=== PATIENT | male | born 1950 | race Caucasian/White ===

== ENCOUNTER 2019-12-26 21:54 | Observation (INO) | payer MEDICARE, OTHER, SELFPAY ==
[2019-12-26 22:12] VITALS: BP 143/81; PULSE 124; RESP 18; TEMP 36.4; O2SAT 93; BMI 26.6
--- NOTE | 2019-12-26 22:16 | ECG_ITS ---
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 Measurements Intervals [place] Rate: 155 P: MT: -1 QRS: 248 QRSD: 138 T: 44 QT: 312 QTc: 501 Interpretive Statements ATRIAL FIBRILLATION WITH RAPID VENTRICULAR RESPONSE WITH ABERRANT CONDUCTION OR VENTRICULAR PREMATURE COMPLEXES MARKED RIGHT AXIS DEVIATION [QRS AXIS > 100] RIGHT BUNDLE BRANCH BLOCK [120+ ms QRS DURATION, UPRIGHT V1, 40+ ms S IN I/aVL/V4/V5/V6] No previous ECG available for comparison Electronically Signed On 12-28-2019 7:39:19 CDT by Coni Emerson M.D. [id number]
--- NOTE | 2019-12-26 22:22 | ECG_ITS ---
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 Measurements Intervals [place] Rate: 85 P: 82 MI: 219 QRS: 268 QRSD: 155 T: 61 QT: 382 QTc: 455 Interpretive Statements SINUS RHYTHM WITH FIRST DEGREE AV BLOCK RIGHT AXIS DEVIATION [QRS AXIS > 100] RIGHT BUNDLE BRANCH BLOCK [120+ ms QRS DURATION, UPRIGHT V1, 40+ ms S IN I/aVL/V4/V5/V6] Compared to ECG 12/26/2019 22:20:24 First degree AV block now present Atrial fibrillation no longer present Ventricular premature complex(es) no longer present Aberrant conduction of supraventricular beat(s) no longer present Electronically Signed On 12-28-2019 7:22:05 CDT by Coni Emerson M.D. [id number]
--- NOTE | 2019-12-26 22:22 | XR_ITS ---
WS: [id number] Exam: XR chest 1V portable [id number] Date/Time of Exam: 12/26/2019 10:33 PM Reason For Exam: palpitations Comparison 02/26/2012. The lungs are hyperinflated and clear. Normal cardiomediastinal structures and bony elements. XR/XR chest 1V portable [id number] IMPRESSION: 1. Marked pulmonary hyperinflation which may indicate obstructive lung disease. No acute process.
[2019-12-26 22:32] VITALS: BP 140/99; PULSE 159; RESP 13; O2SAT 94
[2019-12-26] MEDS: metoprolol tartrate 1 mg/1 mL SDV 5 mL 5 MG IV ×2 (22:46→23:12)
[2019-12-26 22:49] VITALS: BP 143/115; PULSE 100; RESP 19; O2SAT 94
[2019-12-26] MEDS: sodium chloride 0.9% 500 ML 999 ML IV (22:49)
[2019-12-26 22:57] LABS: Basophils # 0.1 10^3/uL (0.0-0.1); Eosinophils # 0.3 10^3/uL (0.0-0.8); Eosinophils % 3.4 %; Hematocrit 47.2 % (42.0-52.0); Hemoglobin 17.1 g/dL (11.7-16.6); Lymphocytes # 3.1 10^3/uL (0.8-4.8); Lymphocytes % 40.7 %; Mean Corpuscular HGB Conc 36.2 g/dL (30.0-36.0); Mean Corpuscular Hemoglobin 33.2 pg (28.0-34.0); Mean Corpuscular Volume 91.7 fL (80-94); Mean Platelet Volume 10.3 fL (7.4-10.4); Monocytes % 12.6 %; Neutrophils # 3.22 10^3/uL (1.8-7.7); Neutrophils % 42.2 %; Nucleated Red Blood Cells % 0 %; Platelet Count 230 10^3/cmm (130-400); Red Blood Count 5.15 10^6/uL (4.1-5.3); Red Cell Distribution Width 11.8 % (12.1-15.1); White Blood Count 7.6 10^3/uL (4.0-10.0)
[2019-12-26 23:16] VITALS: BP 149/101; PULSE 96; RESP 18; O2SAT 94
[2019-12-26 23:20] LABS: Troponin(5th) Baseline 16 ng/L (0-15)
[2019-12-26 23:28] LABS: Alanine Aminotransferase 34 U/L (0-41); Albumin Level 4.7 g/dL (3.5-5.2); Alkaline Phosphatase 78 IU/L (40-130); Aspartate Amino Transferase 24 U/L (0-40); Blood Urea Nitrogen 17 mg/dL (8-23); Carbon Dioxide 31 mmol/L (22-29); Chloride 100 mmol/L (98-107); Creatine Phosphokinase 111 U/L (39-308); Creatinine Clr Calc Pharmacy 75.7969; Glomerular Filtration Rate 83.9 mL/min (90-130); Glucose 133 mg/dL (65-115); NT Pro B Type Natriuretic Pept 42 pg/mL (0-125); Osmolality Calculated 297 mOsm/kg (285-295); Sodium 142 mmol/L (136-145); Thyroid Stimulating Hormone 3.61 uIU/mL (0.27-4.20); Total Bilirubin 0.4 mg/dL (0.15-1.2); Total Protein 7.7 g/dL (6.6-8.7)
[2019-12-26 23:44] VITALS: BP 127/93; PULSE 85; RESP 16; O2SAT 94
[2019-12-26 23:44] LABS: Anion Gap 14.2 (5-19); Potassium 3.2 mmol/L (3.5-5.1)
[2019-12-26 23:50] LABS: D Dimer 0.56 ug/mIFEU (0-0.59)
[2019-12-27] VITALS (13 sets, daily range): BP systolic 101–151; BP diastolic 72–99; PULSE 73–96; RESP 15–19; TEMP 36.6–36.7; O2SAT 92–94
[2019-12-27] MEDS: potassium chloride ER 10 mEq Tablet 40 MEQ PO (00:03)
[2019-12-27 00:41] LABS: Troponin 5 2HR 27.23 ng/L (0-15)
[2019-12-27 00:42] LABS: Troponin 5 2HR Delta 11.23 ABS# (0-10)
--- NOTE | 2019-12-27 01:07 | ED_ITS ---
HPI - Arrhythmia/Palpitations General: Chief Complaint: Arrhythmia/Palpitations Stated Complaint: hr 160/ fluttering in chest Time Seen by Provider: 12/26/19 22:22 History of Present Illness: HPI narrative: 69-year-old gentleman with a history of hypertension. No history of coronary disease. He presents with palpitations for the last several hours at home. He denies any overt chest pain. He notes that he is winded/short of breath mildly. He believes his heart rate is irregular also. He was advised by his family to come in. MD complaint: rapid heart beat and heart racing Onset (ago): hour(s) Duration: constant Severity: moderate Context: occurred during rest Associated symptoms: Reports short of breath; Deny anxiety, cough, nausea or vomiting Review of Systems Const: Denies: fever(s) or chills Eyes: Denies: change in vision or blurry vision ENMT: Denies: swelling of lips/tongue, change in hearing or sinus pain Card: Reports: palpitations, irregular heart rhythm and dyspnea on exertion; Denies: chest pain, edema or swelling of feet/ankles Resp: Reports: dyspnea; Denies: productive cough, non-productive cough or wheezing GI: Denies: nausea or vomiting : Denies: difficulty urinating or hematuria Musc: Denies: neck pain or joint warmth Skin/Breast: Denies: rash or erythema Neuro: Denies: headache(s), dizziness or vertigo Psych: Denies: anxiety Physical Exam Const: GENERAL APPEARANCE: well developed ORIENTATION/CONSCIOUSNESS: Yes oriented to person, Yes oriented to place and Yes oriented to time HENMT: COMMON NORMALS: normocephalic, external ears normal and Normal external nose present HEAD & SCALP: normocephalic FACE & SINUS: normal facial exam NOSE: Normal external nose present and No nasal discharge present EXTERNAL EAR: Yes external ears normal THROAT: posterior oropharynx normal; no peritonsillar mass Eye: COMMON NORMALS: Equal, round and reactive pupils present, EOMs intact bilaterally and conjunctivae normal EYELID: eyelids normal CONJUNCTIVA: Yes conjunctivae normal PUPIL: Yes Equal, round and reactive pupils present Neck/C-Spine: GENERAL: No tracheal deviation Chest: COMMONS NORMALS: normal inspection of the chest CHEST: No tenderness Resp: COMMON NORMALS: clear to auscultation bilaterally EFFORT & INSPECTION: No tachypneic, No respiratory distress, No retractions, No uses accessory muscles and No tracheal deviation AUSCULTATION: clear to auscultation bilaterally, no rhonchi, no wheezes and lung sounds not diminished Cardio: RATE: tachycardic RHYTHM: abnormal rhythm irregularly irregular HEART SOUNDS: no murmurs PERIPHERAL PULSES: radial pulses present GI: INSPECTION: No abdominal distension AUSCULTATION: No Hyperactive bowel sounds present and No Hypoactive bowel sounds present PALPATION: No Guarding due to palpation present (GI) and No Rigid due to palpation PERCUSSION: no dullness to percussion and no tympanic to percussion Neuro: SENSORIUM/ORIENTATION: Yes oriented to person, Yes oriented to place and Yes oriented to time Psych: COMMON NORMALS: mental status grossly normal Skin: COMMON NORMALS: no rashes or lesions noted GENERAL SKIN EXAM: no rashes or lesions noted Course Consultations: Consultation #1: brody Time: 01:35 Vital Signs: Vital signs: Vital Signs Temperature 97.6 F 12/26/19 22:12 Pulse Rate 79 12/27/19 01:32 Respiratory Rate 15 12/27/19 01:22 Blood Pressure 122/96 12/27/19 01:32 Pulse Oximetry 93 12/27/19 01:32 MDM - Arrhythmia/Palpitations MDM Narrative: Medical decision making narrative: 69-year-old hypertensive male presents with a heart rate of 160. It is irregular. EKG shows rapid atrial fibrillation with a large right bundle branch block. On arrival, there were frequent PVCs, essentially atrial fibrillation with a PVC every other beat conducted. He was given 5 mg of IV metoprolol with improvement in his heart rate. He was given another 5 mg of IV metoprolol with conversion back to a sinus rhythm, with first-degree AV block, and large right bundle branch block. He remains hypertensive with a blood pressure of 150/107. He will be given IV Vasotec plus nitroglycerin paste topically. He still does not have any chest pain. He notes he feels a bit better. His potassium is 3.2. Her first troponin was mildly elevated, but his delta at 2 hours is 27. He will be observed for new onset atrial fibrillation with troponin elevation. His D-dimer was negative. Lab Data: Labs: Lab Results 10/25/20 10/25/20 10/25/20 Range/Units 22:37 22:37 22:37 WBC 7.6 (4.0-10.0) 10^3/ uL RBC 5.15 (4.1-5.3) 10^6/u L Hgb 17.1 H (11.7-16.6) g/dL Hct 47.2 (42.0-52.0) % MCV 91.7 (80-94) fL MCH 33.2 (28.0-34.0) pg MCHC 36.2 H (30.0-36.0) g/dL RDW 11.8 L (12.1-15.1) % Plt Count 230 (130-400) 10^3/c mm MPV 10.3 (7.4-10.4) fL Neut % (Auto) 42.2 % Lymph % (Auto) 40.7 % [place] % (Auto) 12.6 % Eos % (Auto) 3.4 % Baso % (Auto) 1.0 % Neut # (Auto) 3.22 (1.8-7.7) 10^3/u L Lymph # (Auto) 3.1 (0.8-4.8) 10^3/u L [place] # (Auto) 1.0 H (0.2-0.9) 10^3/u L Eos # (Auto) 0.3 (0.0-0.8) 10^3/u L Baso # (Auto) 0.1 (0.0-0.1) 10^3/u L Nucleated RBC % (a uto) 0 % Nucleated RBCs # 0.0 /100WBC D-Dimer 0.56 (0-0.59) ug/mIFE U Sodium 142 (136-145) mmol/L Potassium 3.2 L (3.5-5.1) mmol/L Chloride 100 (98-107) mmol/L Carbon Dioxide 31 H (22-29) mmol/L Anion Gap 14.2 (5-19) BUN 17 (8-23) mg/dL Creatinine 0.9 (0.7-1.2) mg/dL GFR Calculation 83.9 L (90-130) mL/min Glucose 133 H (65-115) mg/dL Calculated Osmolal ity 297 H (285-295) mOsm/k g Calcium 10.0 (8.5-10.5) mg/dL Total Bilirubin 0.4 (0.15-1.2) mg/dL AST 24 (0-40) U/L ALT 34 (0-41) U/L Alkaline Phosphata se 78 (40-130) IU/L Creatine Kinase 111 (39-308) U/L Troponin T Baselin e (0-15) ng/L Troponin T 120 Min [place] (0-15) ng/L Delta Troponin T (0-10) ABS# NT-Pro-B Natriuret Pep 42 (0-125) pg/mL Total Protein 7.7 (6.6-8.7) g/dL Albumin 4.7 (3.5-5.2) g/dL Globulin 3.0 (1.3-4.6) g/dL TSH 3.61 (0.27-4.20) uIU/ mL 12/26/19 12/27/19 Range/Units 22:37 00:15 WBC (4.0-10.0) 10^3/ uL RBC (4.1-5.3) 10^6/u L Hgb (11.7-16.6) g/dL Hct (42.0-52.0) % MCV (80-94) fL MCH (28.0-34.0) pg MCHC (30.0-36.0) g/dL RDW (12.1-15.1) % Plt Count (130-400) 10^3/c mm MPV (7.4-10.4) fL Neut % (Auto) % Lymph % (Auto) % [place] % (Auto) % Eos % (Auto) % Baso % (Auto) % Neut # (Auto) (1.8-7.7) 10^3/u L Lymph # (Auto) (0.8-4.8) 10^3/u L [place] # (Auto) (0.2-0.9) 10^3/u L Eos # (Auto) (0.0-0.8) 10^3/u L Baso # (Auto) (0.0-0.1) 10^3/u L Nucleated RBC % (a uto) % Nucleated RBCs # /100WBC D-Dimer (0-0.59) ug/mIFE U Sodium (136-145) mmol/L Potassium (3.5-5.1) mmol/L Chloride (98-107) mmol/L Carbon Dioxide (22-29) mmol/L Anion Gap (5-19) BUN (8-23) mg/dL Creatinine (0.7-1.2) mg/dL GFR Calculation (90-130) mL/min Glucose (65-115) mg/dL Calculated Osmolal ity (285-295) mOsm/k g Calcium (8.5-10.5) mg/dL Total Bilirubin (0.15-1.2) mg/dL AST (0-40) U/L ALT (0-41) U/L Alkaline Phosphata se (40-130) IU/L Creatine Kinase (39-308) U/L Troponin T Baselin e 16 H (0-15) ng/L Troponin T 120 Min [place] 27.23 H (0-15) ng/L Delta Troponin T 11.23 H* (0-10) ABS# NT-Pro-B Natriuret Pep (0-125) pg/mL Total Protein (6.6-8.7) g/dL Albumin (3.5-5.2) g/dL Globulin (1.3-4.6) g/dL TSH (0.27-4.20) uIU/ mL Coding Level of Care Code ED Supervisor Contact Lens for Chg Fwd Exam Comprehensive
[2019-12-27] MEDS: metoprolol tartrate 50 mg Tablet PO (01:17)
[2019-12-27] MEDS: nitroglycerin 1 gm/inch oint Pkt 1.5 INCH TOPICAL (01:18)
[2019-12-27] MEDS: enalaprilat 1.25 mg/mL Inj IVP (01:20)
--- NOTE | 2019-12-27 01:27 | P.HP_ITS ---
Providers/Chief Complaint Primary Care Provider: Uche Villafana MD Chief Complaint: hr 160/ fluttering in chest History of Present Illness Wilbur Wood is a 69 year old male who carries history of hypertension, psoriasis, rheumatoid arthritis, currently grieving the loss of his who due to complication of breast cancer with bone metastasis a month ago came in with chief complaint of palpitations. Patient is stating that today he noticed that something was off, he started noticing palpitations he thought he is having panic attack considering his recent emotional stress, he checked his pulse ox his heart rate was 160, normal saturation, he waited a little bit took some deep breaths which decreases heart rate to 82, but eventually his heart rate went up again, he discussed these findings with his son-in-law who is a PA working with Dr. Tellez recommended him to go to the ER for further evaluation. Diagnostics in the ER revealed A. fib RVR he required 2 dose of metoprolol 5 mg IV which converted his rhythm to sinus rhythm, he did not complain of any chest pain, D-dimer negative, hypokalemia, at the time of my evaluation heart rate 82, sinus rhythm, no active chest pain, shortness of breath He was hypotensive at arrival 143/115, he required Vasotec and Nitropaste along metoprolol, at the time of my evaluation blood pressure 124/92 Review of Systems Const: Reports: body aches and fatigue; Denies: fever(s) or chills Eyes: Denies: change in vision ENMT: Denies: throat pain Card: Reports: palpitations, lightheadedness and pre-syncope; Denies: chest pain Resp: Denies: dyspnea GI: Denies: abdominal pain : Reports: nocturia; Denies: flank pain Musc: Denies: neck pain Skin/Breast: Reports: lesions, changes in skin color and nail changes Neuro: Denies: headache(s) Psych: Reports: anxiety and depression Endo: Denies: polyuria Henry/Lymph: Denies: easy bruising All/Imm: Denies: urticaria Medications/Allergies Allergies Allergy/AdvReac Type Severity Reaction Status Date / Time No Known Allergies Allergy Verified 12/26/19 22:44 PFSH Acute PFSH: Medical History BPH (benign prostatic hyperplasia) Hypertension Psoriasis Rheumatoid arthritis Surgical History No pertinent past surgical history Family History Father CAD (coronary artery disease) [place] age 82 Social History Smoking and tobacco status: former smoker Quit status (tobacco): has quit using tobacco Former quit date comment: 2012 Alcohol intake: never Substance/Drug Use: current Substance/Drug use frequency: Special oc cassions/opportunity only Lives independently: Yes Housing: House Marital status details: His a month ago Vitals/I&O/Wt Last Vital Signs Temp 97.6 F 12/26/19 22:12 Pulse 79 12/27/19 01:22 Resp 15 12/27/19 01:22 BP 144/92 12/27/19 01:22 Pulse Ox 94 12/27/19 01:22 12/26/19 12/26/19 12/27/19 14:59 22:59 06:59 Intake Total 500 / 500 Balance 500 / 500 Weight last 48 hrs Weight 74.843 kg Physical Exam Narrative: EXAM NARRATIVE: Very pleasant elderly male who is sitting comfortably Currently saturating well on room air Heart rate 82 systolic blood pressure 124 No active chest pain, shortness of breath Appears well-hydrated, well-built S1, S2 sinus rhythm No acute respiratory distress, mild rhonchi heard at the bases of the lungs bilateral Abdomen soft nontender bowel sound present No carotid bruit or murmur appreciated No lower extremity edema Skin psoriasis Digital joint abnormalities secondary to rheumatoid arthritis Chronic skin rash on his extremities Appropriate mood and affect EOMI, PERRLA Neurologically nonfocal exam Data : 12/26/19 22:37 12/26/19 22:37 A&P Assessment and plan (1) Hypertensive urgency: Status: Acute (2) Paroxysmal A-fib: Status: Acute (3) Hypokalemia: Status: Acute Additional A&P Information Paroxysmal atrial fibrillation Converted to sinus rhythm after 2 doses of metoprolol 5 mg IV Currently in sinus rhythm, I would hold off on initiating anticoagulant agent, he remained in A. fib for less than an hour TSH normal I believe pres[facility] factor was hypertensive urgency, D-dimer negative Observe overnight on telemetry floor Echo in the morning, his troponin leak is most likely secondary to tac hyarrhythmia no active chest pain shortness of breath or signs of heart failure Hypokalemia: He does drink beer occasionally, will check magnesium level, potassium repleted Hypertensive urgency He only takes hydrochlorothiazide at home 25 mg/day I would add lisinopril and amlodipine with it Full code Cardiac diet DVT prophylaxis Lovenox Attestations Medical Necessity Statement*: Anticipating discharge in less than 48 hours continued echo for troponin leak however no chest pain Time Spent in Patient Care: (>than 50% of time spent in counselling and/or direct pt care on unit) . 50mins Coding Level of Care Code Acute Him Director for Clementina Gloria Diagnoses Hypertensive urgency I16.0 Paroxysmal A-fib I48.0 Hypokalemia E87.6
[2019-12-27 01:56] LABS: Magnesium 2.1 mg/dL (1.7-2.3)
--- NOTE | 2019-12-27 03:17 | USCV_ITS ---
Wilbur Wood Age: 69 Gender: M : 1950 Exam Date: 12/27/2019 06:35 Ordering Phys: Jeannie Goncalves MD Technologist: Elma Plasencia Exam Location: [facility] [place] Indication: AFIB BP: 124 / 87 HR: 126 Rhythm: Sinus Technical Quality: Suboptimal MEASUREMENTS (Male / Female) Normal Values 2D ECHO LV Diastolic Diameter PLAX 3.3 cm 4.2 - 5.9 / 3.9 - 5.3 cm LV Systolic Diameter PLAX 2.7 cm LV Chamber Size 2.1 cm IVS Diastolic Thickness 1.4 cm 0.6 - 1.0 / 0.6 - 0.9 cm IVS Systolic Thickness 1.4 cm LVPW Diastolic Thickness 2.0 cm 0.6 - 1.0 / 0.6 - 0.9 cm LVPW Systolic Thickness 2.1 cm RV Chamber Size 3.3 cm LVOT Diameter 2.0 cm LV Ejection Fraction 2D Teich 40.4 % LV Ejection Fraction MOD 2C 60.5 % LV Ejection Fraction 2C AL 60.0 % LA Diameter 2.2 cm LA Width 2.7 cm LA Height 4.0 cm RA Width 3.3 cm RA Height 3.5 cm Aorta at Sinotubular Diameter 2.9 cm M-MODE LV Diastolic Diameter MM 3.7 cm 4.2 - 5.9 / 3.9 - 5.3 cm LV Systolic Diameter MM 2.3 cm LV Ejection Fraction MM Teich 68.1 % IVS Diastolic Thickness MM 0.7 cm 0.6 - 1.0 / 0.6 - 0.9 cm IVS Systolic Thickness MM 1.1 cm LVPW Diastolic Thickness MM 0.6 cm 0.6 - 1.0 / 0.6 - 0.9 cm LVPW Systolic Thickness MM 1.2 cm Aortic Annulus Diameter 3.8 cm LA Ao Ratio MM 0.7 DOPPLER AV Peak Velocity 123.0 cm/s LVOT Peak Velocity 94.0 cm/s AV Area Cont Eq vti 2.9 cm squared AV Area Cont Eq pk 2.4 cm squared MV Area PHT 2.8 cm squared Mitral E to A Ratio 1.0 MV E' Velocity 44.0 cm/s Mitral E to MV E' Ratio 10.2 Mitral E to LV E' Lateral Ratio 10.9 Mitral E to LV E' Septal Ratio 9.7 TR Peak Velocity 106.3 cm/s TR Peak Gradient 4.5 mmHg TV Peak E Velocity 40.0 cm/s Right Atrial Pressure 3.0 mmHg Pulmonary Artery Systolic Pressu 7.5 mmHg PV Peak Velocity 43.0 cm/s RV Acceleration Time 0.1 s RV Ejection Time 0.3 s RV AcT/ET 0.2 FINDINGS Left Ventricle Normal left ventricular cavity size. Normal left ventricular systolic function. No regional wall motion abnormalities. Left ventricular ejection fraction is estimated at 60 %. There appeared to be septal bounce which could be secondary interventricular conduction delay or postoperative state. Grade II/IV diastolic dysfunction, moderately elevated filling pressures. Right Ventricle The right ventricle is normal in size and function. Right Atrium The right atrium is normal in size. Left Atrium The left atrium is normal in size. Mitral Valve Structurally normal mitral valve without significant stenosis or prolapse. There is no mitral regurgitation. Aortic Valve Mild aortic valve calcification. No aortic valve stenosis. No aortic valve regurgitation. Tricuspid Valve Structurally normal tricuspid valve without significant stenosis or regurgitation. Pulmonary artery systolic pressure is normal. Pulmonic Valve Structurally normal pulmonic valve without significant stenosis. There is no pulmonic regurgitation. Pericardium Normal pericardium without effusion. Aorta Normal ascending aorta dimension. CONCLUSIONS 1-Normal left ventricular cavity size. Normal left ventricular systolic function. No regional wall motion abnormalities. Left ventricular ejection fraction is estimated at 60 %. There appeared to be septal bounce which could be secondary interventricular conduction delay or postoperative state. Grade II/IV diastolic dysfunction, moderately elevated filling pressures. 2-Mild aortic valve calcification. No aortic valve stenosis. No aortic valve regurgitation. 3-There is no pericardial effusion. 4-No significant valve abnormalities. 5-Pulmonary artery systolic pressure is within normal limits. 6-Right atrial pressure is around 5 mm of mercury. 7-There are no prior echocardiogram studies to compare. Jeannie Brown MD (Electronically Signed) Final Date: 27 December 2019 17:56 S
--- NOTE | 2019-12-27 03:46 | PC.NURSE ---
Dr. Goncalves notified that there is an order for 40 of Potassium now and 40 of potassium was given at midnight in ED. Ordered to non-admin potassium that is due now. Patient arrived to the floor from the ED after report was received via phone. Patient is alert and oriented and ambulatory. Patient is in SR heart rate 70s-80s. Patient has been oriented to his room and has call light within reach. Patient has no complaints of pain, heart palpitations, or shortness of breath at this time. Patient states my just November 01 from cancer. Patient began crying.
[2019-12-27] MEDS: enoxaparin 40 mg/0.4 mL Syringe SUBCUT (03:54)
[2019-12-27 06:20] LABS: Anion Gap 10.7 (5-19); Blood Urea Nitrogen 17 mg/dL (8-23); Calcium 8.9 mg/dL (8.5-10.5); Carbon Dioxide 31 mmol/L (22-29); Chloride 105 mmol/L (98-107); Glomerular Filtration Rate 96.1 mL/min (90-130); Glucose 115 mg/dL (65-115); Osmolality Calculated 298 mOsm/kg (285-295); Potassium 3.7 mmol/L (3.5-5.1); Sodium 143 mmol/L (136-145)
[2019-12-27 06:40] LABS: Troponin 5 6HR 30.11 ng/L (0-15)
[2019-12-27 06:46] LABS: Troponin 5 6HR Delta 14.11 ng/L (0-12)
[2019-12-27] MEDS: lisinopril 10 mg Tablet PO (08:51)
[2019-12-27] MEDS: amlodipine 5 mg Tablet PO (08:51)
[2019-12-27] MEDS: metoprolol tartrate 25 mg Tablet PO (08:51)
--- NOTE | 2019-12-27 09:56 | PC.CHAP ---
Pastoral Care Encounter/Spiritual Assessment Type of Contact [] Declined dado operator visit [] Patient/Family/Request visit [] Outpatient visit [] Follow-up visit [] Physician referral [] Code/Alert [x] Routine visit [] Staff referral [] Actively dying [] Patient sleeping [] Family support [] [] Out of room [] Palliative care [] [] Receiving care in room [] Pre-surgical visit [] Trauma [] Long length of stay [] ICU visit [] Other: Relational/Emotional Strength [] Patient feels connected with others/family/visitors/staff [] Distress [] Loneliness/isolation [] Abandonment Spirituality of Patient [] Person of Therese [] Attends Adventism of their [place] [] Believes in Prayer [] Reads Bible or Lutheran materials [] There are Spiritual issues to be addressed Rn Lactation Interventions [x] Prayer [x] Active listening [x] Non-anxious presence [x] Spiritual/emotional support [] Crisis/trauma care [] Spiritual counseling [] Bereavement support [] Provided bereavement packet [] Provided Bible/devotional materials [] Provided toy/stuffed animal, coloring book to patient or family member [] Provided Communion [] Anointing/[place] [] Salvation [x] Completed spiritual assessment [] Other: Impact on Illness or Injury [] Angry [] Fearful [] Anxious [] Often cries [] Exhaustion [] Unable to work [] Unable to attend jainism [] Unable to walk/stand [] Unable to read [] Unable to drive [] Unable to eat/drink [] Unable to sleep [] Unable to be with family [] Patient intubated [] Other: Summary chest paints have stopped.. anxious about little dog (Birdie) at home.. passed (49yr) November 01.... gentleman, has children Time spent with patient 10 min
--- NOTE | 2019-12-27 12:08 | P.DS_ITS ---
Discharge Providers Date of Admission: 12/27/19 01:50 Date of Discharge: December 27, 2019 Attending Provider at Admission: Jeannie Goncalves MD Attending Provider at Discharge: Uche Villafana MD Primary Care Provider: Uche Villafana MD Diagnoses at Discharge Discharge Diagnosis (1) Hypertensive urgency: Status: Acute (2) Paroxysmal A-fib: Status: Acute (3) Hypokalemia: Status: Acute Reason for Visit Reason for Visit: hr 160/ fluttering in chest Hospital Course Discharge Summary: Patient is a 69-year-old male with a history of COPD and hypertension. He came into the emergency room for chest pain. He was found to be in A. fib with RVR. He received 2 doses of metoprolol and this converted back to sinus rhythm. His blood pressure was markedly elevated as well. This came down with other medications also. He states that his had about a month ago. He has not been taking good care of himself. Not eating healthy. He has been very stressed out with this as well. Patient was doing much better at the time of discharge. Troponins were marginally elevated but felt to be from the A. fib. He will follow-up with me in the clinic in the next 2 to 3 days to. We will determine if stress test is needed at that time. Discharge Data Data Completed and Pending: Completed Studies During Hospitalization Category Date Time Status XR chest 1V pricilla ble [id number] Stat Exams 12/26/19 22:22 Completed Pending at discharge Category Date Time Status CV echo complete* [id number] Routine Ultrasound 12/27/19 03:17 Taken Labs from last 24 hours 12/27/19 12/27/19 12/27/19 05:58 05:58 00:15 WBC RBC Hgb Hct MCV MCH MCHC RDW Plt Count MPV Neut % (Auto) Lymph % (Auto) [place] % (Auto) Eos % (Auto) Baso % (Auto) Neut # (Auto) Lymph # (Auto) [place] # (Auto) Eos # (Auto) Baso # (Auto) Nucleated RBC % (a uto) Nucleated RBCs # D-Dimer Sodium 143 Potassium 3.7 Chloride 105 Carbon Dioxide 31 H Anion Gap 10.7 BUN 17 Creatinine 0.8 GFR Calculation 96.1 Glucose 115 Calculated Osmolal ity 298 H Calcium 8.9 Magnesium 2.1 Total Bilirubin AST ALT Alkaline Phosphata se Creatine Kinase Troponin T Baselin e Troponin T 120 Min [place] Delta Troponin T Troponin T Hi Sens 6Hr 30.11 H Troponin T Hi Sens 6Hr Delta 14.11 H* NT-Pro-B Natriuret Pep Total Protein Albumin Globulin TSH 12/27/19 12/26/19 12/26/19 00:15 22:37 22:37 WBC RBC Hgb Hct MCV MCH MCHC RDW Plt Count MPV Neut % (Auto) Lymph % (Auto) [place] % (Auto) Eos % (Auto) Baso % (Auto) Neut # (Auto) Lymph # (Auto) [place] # (Auto) Eos # (Auto) Baso # (Auto) Nucleated RBC % (a uto) Nucleated RBCs # D-Dimer Sodium 142 Potassium 3.2 L Chloride 100 Carbon Dioxide 31 H Anion Gap 14.2 BUN 17 Creatinine 0.9 GFR Calculation 83.9 L Glucose 133 H Calculated Osmolal ity 297 H Calcium 10.0 Magnesium Total Bilirubin 0.4 AST 24 ALT 34 Alkaline Phosphata se 78 Creatine Kinase 111 Troponin T Baselin e 16 H Troponin T 120 Min [place] 27.23 H Delta Troponin T 11.23 H* Troponin T Hi Sens 6Hr Troponin T Hi Sens 6Hr Delta NT-Pro-B Natriuret Pep 42 Total Protein 7.7 Albumin 4.7 Globulin 3.0 TSH 3.61 12/26/19 12/26/19 22:37 22:37 WBC 7.6 RBC 5.15 Hgb 17.1 H Hct 47.2 MCV 91.7 MCH 33.2 MCHC 36.2 H RDW 11.8 L Plt Count 230 MPV 10.3 Neut % (Auto) 42.2 Lymph % (Auto) 40.7 [place] % (Auto) 12.6 Eos % (Auto) 3.4 Baso % (Auto) 1.0 Neut # (Auto) 3.22 Lymph # (Auto) 3.1 [place] # (Auto) 1.0 H Eos # (Auto) 0.3 Baso # (Auto) 0.1 Nucleated RBC % (a uto) 0 Nucleated RBCs # 0.0 D-Dimer 0.56 Sodium Potassium Chloride Carbon Dioxide Anion Gap BUN Creatinine GFR Calculation Glucose Calculated Osmolal ity Calcium Magnesium Total Bilirubin AST ALT Alkaline Phosphata se Creatine Kinase Troponin T Baselin e Troponin T 120 Min [place] Delta Troponin T Troponin T Hi Sens 6Hr Troponin T Hi Sens 6Hr Delta NT-Pro-B Natriuret Pep Total Protein Albumin Globulin TSH Vitals: Last Vital Signs Temp 97.8 F 12/27/19 10:59 Pulse 73 12/27/19 10:59 Resp 18 12/27/19 10:59 BP 101/74 12/27/19 10:59 Pulse Ox 93 12/27/19 10:59 Discharge Plan Discharge Patient Disposition: Home Condition: Stable Prescriptions: New metoprolol tartrate 25 mg Tablet 25 mg PO BID Qty: 60 RF: 8 Continued hydrochlorothiazide 25 mg Tablet 25 mg PO DAILY RF: 0 fluocinonide 0.05 % Solution 1 applic TOPICAL BID PRN (Reason: Itching) RF: 0 ketoconazole 2 % Shampoo 1 applic TOPICAL Q14D PRN (Reason: Itching) RF: 0 betamethasone dipropionate 0.05 % Ointment 1 applic TOPICAL BID PRN (Reason: Itching) RF: 0 desonide 0.05 % Ointment 1 applic TOPICAL BID PRN (Reason: Itching) RF: 0 Advair Diskus 250-50 mcg/dose Blister With Device 1 inh INHALATION BID RF: 0 melatonin 10 mg Capsule 20 mg PO BEDTIME RF: 0 Discharge Orders: Discharge Order (Routine); Ordered 12/27/19 Ordered By: Uche Villafana Referrals: Uche Villafana MD [Primary Care Provider] - 1-3 days Discharge Diet: Usual diet Discharge Activity: Resume usual activity Activity Restrictions/Additional Instructions: -Continue your home medications the same. -Add new medication metoprolol 25 mg twice a day. -Reduce any caffeine or extra salt intake. -Follow-up with Dr. Villafana in 2 to 3 days -Call if increasing chest pain or shortness of breath. Discharge Attestations Time Spent in Discharge Care*: greater than 30 min Quality Metrics Clinical Quality Measures During this hospital stay, did patient experience: None Coding Level of Care Code Acute Cost Estimator for Chg Fwd Diagnoses Hypertensive urgency I16.0 Paroxysmal A-fib I48.0 Hypokalemia E87.6
--- NOTE | 2019-12-27 12:29 | PC.NURSE ---
Patient discharged home at this time self care, Patient provided with discharge instructions and all follow up appointment. Patient verbalized understanding of all instructions. IV discontinued with cath intact min bleeding noted bandage applied. Patient accompanied to POV by staff, patient alert oriented and in stable condition upon departure.
== END 2019-12-27 12:36 | disposition home or self-care (01) ==
LOC: ER 22:22 → CSU 12-27 02:59
PROVIDERS: Emergency Medicine; Admitting Provider Internal Medicine; PCP Family Medicine; Visit Provider Family Medicine
DX: I16.0 Hypertensive urgency (principal); I48.0 Paroxysmal atrial fibrillation; E87.6 Hypokalemia; M06.9 Rheumatoid arthritis, unspecified; N40.0 Benign prostatic hyperplasia without lower urinary tract symptoms; I10 Essential (primary) hypertension; Z82.49 Family history of ischemic heart disease and other diseases of the circulatory system; Z87.891 Personal history of nicotine dependence
CPT/HCPCS: 12345; 36415; 71045; 80048; 80053; 82550; 83735; 83880; 84443; 84484; 85025; 85378; 93005; 93306; 96360; 96361; 96372; 96374; 96375; 96376; 99283; 99285; G0378; J1650; J3490; J7040

== ENCOUNTER 2020-08-15 23:11 | Inpatient (IN) | payer MEDICARE, OTHER, SELFPAY ==
[2020-08-15 23:20] VITALS: BP 107/68; PULSE 73; RESP 18; TEMP 36.3; O2SAT 94; BMI 24.5
--- NOTE | 2020-08-15 23:55 | XRR_ITS ---
PROCEDURE INFORMATION: Exam: XR Abdomen Exam date and time: 08/15/2020 11:55 PM Age: 70 years old Clinical indication: Other: Rectal bleeding; Additional info: Abd pain. Rectal bleeding. TECHNIQUE: Imaging protocol: XR of the abdomen. Views: 2 Views. Upright and supine views. COMPARISON: No relevant prior studies available. FINDINGS: Gastrointestinal tract: Normal. No bowel dilation. Intraperitoneal space: Normal. No free air. Vasculature: One or more calcified pelvic phleboliths. Bones/joints: Moderate right primary glenohumeral osteoarthritis. XR/XR acute abdomen series [id number] IMPRESSION: No acute findings.
--- NOTE | 2020-08-15 23:55 | ECG_ITS ---
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 Measurements Intervals [place] Rate: 75 P: 82 OR: 214 QRS: 266 QRSD: 149 T: 58 QT: 393 QTc: 441 Interpretive Statements SINUS RHYTHM WITH FIRST DEGREE AV BLOCK MARKED RIGHT AXIS DEVIATION [QRS AXIS > 100] RIGHT BUNDLE BRANCH BLOCK [120+ ms QRS DURATION, UPRIGHT V1, 40+ ms S IN I/aVL/V4/V5/V6] POSSIBLE SEPTAL MYOCARDIAL INFARCTION [30 ms Q WAVE IN V1/V2], OF INDETERMINATE AGE Compared to ECG 12/27/2019 00:08:45 Myocardial infarct finding now present Electronically Signed On 08-16-2020 17:44:01 CDT by Lucille Gallegos M.D. [email or web address]
[2020-08-16] VITALS (14 sets, daily range): BP systolic 108–154; BP diastolic 68–83; PULSE 63–82; RESP 16–19; TEMP 36.3–36.9; O2SAT 92–97
[2020-08-16] LABS: Basophils # 0.1 10^3/uL (0.0-0.1); Basophils % 0.6 %; Eosinophils # 0.4 10^3/uL (0.0-0.8); Eosinophils % 3.8 %; Hematocrit 38.9 % (42.0-52.0); Lymphocytes # 3.1 10^3/uL (0.8-4.8); Lymphocytes % 33.1 %; Mean Corpuscular Hemoglobin 33.3 pg (28.0-34.0); Mean Corpuscular Volume 92.6 fL (80-94); Mean Platelet Volume 10.1 fL (7.4-10.4); Monocytes # 0.7 10^3/uL (0.2-0.9); Monocytes % 7.9 %; Neutrophils # 5.02 10^3/uL (1.8-7.7); Neutrophils % 54.4 %; Nucleated Red Blood Cells % 0 %; Platelet Count 209 10^3/cmm (130-400); Red Cell Distribution Width 11.9 % (12.1-15.1); White Blood Count 9.2 10^3/uL (4.0-10.0)
--- NOTE | 2020-08-16 00:05 | W.ED.GIBLEED ---
HPI - GI Bleed General: Chief complaint: GI Bleed Stated complaint: blood in stool Time Seen by Provider: 08/16/20 00:02 History of Present Illness: HPI Narrative: This patient is a 70-year-old male who presents to the emergency department with complaint of bright red blood per rectum. Patient states he had very large bloody stools x5 today. Patient states he felt like his abdomen was growling went to the bathroom and had significant amount of blood. With clots. Patient states she never had any issues like this before he states he only takes an aspirin a day. Patient states he had so much bleeding that he felt like he was in a pass out because he gets lightheaded. Patient states he is feeling much better now we will do medical evaluation treat as needed. Patient is present with his son who described the blood being in the floor also. complaint: melena and gross hematochezia Onset (ago): minute(s) Severity: moderate Relieving factors: none Exacerbating factors: none Associated symptoms: Denies abdominal pain, chills, fever(s), headache(s), nausea, rash or vomiting Review of Systems General: Reports: 10 or more systems reviewed and unremarkable except in HPI and below Const: Denies: fever(s), chills, body aches or fatigue Eyes: Denies: change in vision or blurry vision ENMT: Denies: throat pain, hoarseness or mouth pain Card: Denies: chest pain, palpitations, irregular heart rhythm, edema, swelling of feet/ankles or lightheadedness Resp: Denies: dyspnea, productive cough, non-productive cough, wheezing or pain on inspiration GI: Reports: hematochezia; Denies: abdominal pain, nausea or vomiting : Denies: flank pain, dysuria, urinary frequency, urinary urgency or urinary hesitancy Musc: Denies: neck pain, back pain, extremity pain, extremity swelling, joint pain, joint swelling, joint redness, joint warmth or limited range of motion Skin/Breast: Denies: rash, pruritus, erythema or skin tenderness Neuro: Denies: headache(s), numbness in extremities or weakness in extremities Psych: Denies: anxiety or depression [facility] ED PFSH: Medical History (Updated 08/16/20 @ 00:39 by Bob Ortiz MD) BPH (benign prostatic hyperplasia) Hypertension Paroxysmal A-fib Psoriasis Rheumatoid arthritis Surgical History No pertinent past surgical history Family History Father CAD (coronary artery disease) [place] age 82 Social History Smoking and tobacco status: former smoker Quit status (tobacco): has quit using tobacco Former quit date comment: 2012 Alcohol intake: never Lives independently: Yes Housing: House Marital status details: His a month ago Physical Exam Const: COMMON NORMALS: no acute distress, average body habitus, patient oriented x3, no limitations, healthy appearing, alert and well nourished HENMT: COMMON NORMALS: normocephalic, atraumatic, hearing grossly normal bilaterally, external ears normal, EAC's normal, TM's normal bilaterally, Normal external nose present, Normal nasal mucous membranes and turbinates present, moist oral mucous membranes, oropharynx normal, dentition normal and gingiva normal HEAD & SCALP: normocephalic and atraumatic NOSE: Normal external nose present and Normal nasal mucous membranes and turbinates present EXTERNAL EAR: Yes external ears normal EXTERNAL AUDITORY CANAL: EAC's normal TYMPANIC MEMBRANE: TM's normal bilaterally Neck/C-Spine: COMMON NORMALS: full ROM, no lymphadenopathy, supple, no meningeal signs, no JVD, Thyroid normal and No carotid bruits THYROID: Thyroid normal Chest: COMMONS NORMALS: normal inspection of the chest, normal palpation of entire chest wall, normal inspection of the breasts and normal palpation of the breasts Breast/axilla inspection: Yes normal inspection of the breasts BREAST/AXILLA PALPATION: Yes normal palpation of the breasts Resp: COMMON NORMALS: normal respiratory effort, No retractions, No use of accessory muscles, clear to auscultation bilaterally and percussion normal AUSCULTATION: clear to auscultation bilaterally PERCUSSION: percussion normal Cardio: COMMON NORMALS: no JVD, regular rate, regular rhythm, S1 normal heart sound present, S2 normal heart sound present, No gallops present (Cardio), No clicks present (Cardio), No murmurs present (Cardio), No rub (Cardio) and Peripheral pulses 2+ throughout RATE: regular rate RHYTHM: regular rhythm HEART SOUNDS: S1 normal heart sound present and S2 normal heart sound present PERIPHERAL PULSES: Peripheral pulses 2+ throughout GI: COMMON NORMALS: Normal to inspection, nondistended, normoactive bowel sounds present, Soft to palpation, non-tender, No hepatosplenomegaly present, no masses and no bruits PALPATION: Yes Soft to palpation and Yes No hepatosplenomegaly present RECTAL EXAM: Yes Visual inspection abnormal (Blood around the anus) and Yes heme positive stool : COMMON NORMALS: Yes no CVA tenderness BLADDER/KIDNEY EXAM: Yes no CVA tenderness Back/Pelvis: COMMON NORMALS: no CVA tenderness, thoracic and lumbar spine normal to inspection, no thoracic nor lumbar tenderness, thoraco-lumbar ROM normal and straight leg raise negative bilaterally Extremity: COMMON NORMALS: normal to inspection, full ROM, capillary refill normal, no joint enlargement, no clubbing, cyanosis or edema, no calf tenderness and no pedal edema Neuro: COMMON NORMALS: patient oriented x3 SENSORIUM/ORIENTATION: Yes alert MENINGEAL SIGNS: Yes no meningeal signs Course Reevaluation(s): Reevaluation #1: I discussed at length with patient and family about concerns and findings. Patient is agreeable to be admitted to the hospital. Time: 00:39 Consultations: Consultation #1: I did discuss at length with Dr. Oro he will admit the patient write additional orders. Patient will need colonoscopy. Time: 00:39 Vital Signs: Vital signs: Vital Signs Temperature 97.3 F L 08/15/20 23:20 Pulse Rate 77 08/16/20 00:37 Respiratory Rate 18 08/15/20 23:20 Blood Pressure 110/78 08/16/20 00:37 Pulse Oximetry 94 08/15/20 23:20 MDM - GI Bleed MDM Narrative: Medical decision making narrative: This patient is a 70-year-old male who presents to the emergency department with complaint of bright red blood per rectum. Patient states he had very large bloody stools x5 today. Patient states he felt like his abdomen was growling went to the bathroom and had significant amount of blood. With clots. Patient states she never had any issues like this before he states he only takes an aspirin a day. Patient states he had so much bleeding that he felt like he was in a pass out because he gets lightheaded. Patient states he is feeling much better now we will do medical evaluation treat as needed. Patient is present with his son who described the blood being in the floor also. Lab Data: Labs: Lab Results 08/15/20 08/15/20 08/16/20 Range/Units 23:30 23:30 00:23 WBC 9.2 (4.0-10.0) 10^3/ uL RBC 4.20 (4.1-5.3) 10^6/u L Hgb 14.0 (11.7-16.6) g/dL Hct 38.9 L (42.0-52.0) % MCV 92.6 (80-94) fL MCH 33.3 (28.0-34.0) pg MCHC 36.0 (30.0-36.0) g/dL RDW 11.9 L (12.1-15.1) % Plt Count 209 (130-400) 10^3/c mm MPV 10.1 (7.4-10.4) fL Neut % (Auto) 54.4 % Lymph % (Auto) 33.1 % [place] % (Auto) 7.9 % Eos % (Auto) 3.8 % Baso % (Auto) 0.6 % Neut # (Auto) 5.02 (1.8-7.7) 10^3/u L Lymph # (Auto) 3.1 (0.8-4.8) 10^3/u L [place] # (Auto) 0.7 (0.2-0.9) 10^3/u L Eos # (Auto) 0.4 (0.0-0.8) 10^3/u L Baso # (Auto) 0.1 (0.0-0.1) 10^3/u L Nucleated RBC % (a uto) 0 % Nucleated RBCs # 0.0 /100WBC PT 14.00 (12.1-14.9) SECO NDS INR 1.05 (0.8-1.2) APTT 23.2 L (23.9-36.7) SECO NDS Sodium 139 (136-145) mmol/L Potassium 3.7 (3.5-5.1) mmol/L Chloride 102 (98-107) mmol/L Carbon Dioxide 27 (22-29) mmol/L Anion Gap 13.7 (5-19) BUN 17 (8-23) mg/dL Creatinine 0.9 (0.7-1.2) mg/dL GFR Calculation 83.7 L (90-130) mL/min Glucose 133 H (65-115) mg/dL Calculated Osmolal ity 291 (285-295) mOsm/k g Calcium 9.2 (8.5-10.5) mg/dL Total Bilirubin 0.3 (0.15-1.2) mg/dL AST 19 (0-40) U/L ALT 16 (0-41) U/L Alkaline Phosphata se 68 (40-130) IU/L Total Protein 6.8 (6.6-8.7) g/dL Albumin 4.1 (3.5-5.2) g/dL Globulin 2.7 (1.3-4.6) g/dL Imaging Data^: KUB: Attestation: I personally reviewed and interpreted this imaging study as follows: Radiologist's impression: No acute findings EKG Data^: EKG 1: Attestation: I personally reviewed and interpreted this EKG as follows: EKG interpretation date: 08/16/20 EKG interpretation time: 00:22 Prior EKG tracings: not available for review Computer generated interpretation: Sinus rhythm with a first-degree AV block. Right axis deviation. Heart rate 75. Right bundle branch block. Nonspecific EKG changes. Discharge Plan Discharge Patient Disposition: Admitted As Inpatient Clinical Impression: Lower gastrointestinal hemorrhage Condition: Stable Coding Level of Care Code ED Automotive Alignment Specialist for Chg Fwd Exam Comprehensive
[2020-08-16 00:12] LABS: Alanine Aminotransferase 16 U/L (0-41); Albumin Level 4.1 g/dL (3.5-5.2); Alkaline Phosphatase 68 IU/L (40-130); Anion Gap 13.7 (5-19); Aspartate Amino Transferase 19 U/L (0-40); Blood Urea Nitrogen 17 mg/dL (8-23); Calcium 9.2 mg/dL (8.5-10.5); Carbon Dioxide 27 mmol/L (22-29); Chloride 102 mmol/L (98-107); Creatinine Clr Calc Pharmacy 72.1597; Globulin 2.7 g/dL (1.3-4.6); Glomerular Filtration Rate 83.7 mL/min (90-130); Glucose 133 mg/dL (65-115); Osmolality Calculated 291 mOsm/kg (285-295); Potassium 3.7 mmol/L (3.5-5.1); Sodium 139 mmol/L (136-145); Total Bilirubin 0.3 mg/dL (0.15-1.2); Total Protein 6.8 g/dL (6.6-8.7)
[2020-08-16] MEDS: sodium chloride 0.9% 1,000 ML 999 ML IV (00:28)
--- NOTE | 2020-08-16 00:33 | CTR_ITS ---
PROCEDURE INFORMATION: Exam: CT Abdomen And Pelvis With Contrast Exam date and time: 08/16/2020 12:33 AM Age: 70 years old Clinical indication: Other: Rectal bleed; Patient HX: Multiple episodes of bright red bloody stools. ; Additional info: Abd pain TECHNIQUE: Imaging protocol: Computed tomography of the abdomen and pelvis with contrast. Radiation optimization: All CT scans at this facility use at least one of these dose optimization techniques: automated exposure control; mA and/or kV adjustment per patient size (includes targeted exams where dose is matched to clinical indication); or iterative reconstruction. Contrast material: OMNI 300; Contrast volume: 95 ml; Contrast route: INTRAVENOUS (IV); COMPARISON: CR (ABDOMEN, ) 08/15/2020 11:55 PM RADIATION DOSE METRICS: Total DLP (mGy-cm): 1048.81 FINDINGS: Liver: Normal. No mass. Gallbladder and bile ducts: Normal. No calcified stones. No ductal dilation. Pancreas: Normal. No ductal dilation. Spleen: Calcified splenic granulomas. Adrenal glands: Normal. No mass. Kidneys and ureters: Normal. No hydronephrosis. Stomach and bowel: Mild colonic diverticulosis. Appendix: Normal appendix. Intraperitoneal space: Unremarkable. No free air. No significant fluid collection. Vasculature: Calcification of the abdominal aorta and/or iliac arteries consistent with atherosclerotic vessel disease. One or more calcified pelvic phleboliths. Lymph nodes: Unremarkable. No enlarged lymph nodes. Urinary bladder: Unremarkable as visualized. Reproductive: Unremarkable as visualized. Bones/joints: Unremarkable. No acute fracture. Soft tissues: Unremarkable. CT/CT abdomen pelvis w con* [id number] IMPRESSION: No acute findings. Radiation Dose CTDIVOL = (mGy): DLP = 1048.81 (mGy-cm)
[2020-08-16 00:43] LABS: INR 1.05 (0.8-1.2); Partial Thromboplastin Time 23.2 SECONDS (23.9-36.7)
[2020-08-16] MEDS: iohexol 300 mg/mL 100 mL Btl IV (00:52)
[2020-08-16 01:36] LABS: Add Urine Culture? Yes; Add Urine Microscopic? YES; Bacteria Urine TRACE /hpf; Bilirubin Urine Neg (Negative); Blood Urine 2+ (Negative); Glucose Urine UA Norm (Normal); Ketones Urine Negative (Negative); Leukocyte Esterase Urine Negative (Negative); Mucus Urine 1+ /hpf; Nitrate Urine Negative (Negative); Protein Urine Trace (Negative); RBC Urine 0-4 /hpf (0-2); Squamous Epithelial Cell Urine 0-4 /hpf (0-5); Urine Appearance Clear (CLEAR); Urine Color Yellow (Yellow); Urobilinogen Urine Norm (Negative); WBC Urine 25-40 /hpf (0-5); pH Urine 7 (5-7)
--- NOTE | 2020-08-16 03:42 | PM.HP ---
Providers/Chief Complaint Admitting Physician: Patricia Oro Primary Care Provider: Uche Villafana MD Chief Complaint: blood in stool History of Present Illness 70-year-old with a past medical history significant for remote history of tobacco abuse, chronic obstructive pulmonary disease, chronic stage II diastolic dysfunction, and hypertension who presented to the hospital with bright red blood per rectum. Patient stated this started last evening. Noted multiple episodes. After this patient started to feel somewhat lightheaded in dizzy. Denied chest discomfort. No shortness of breath. Denied abdominal pain. No prior history of GI bleed. Takes aspirin 81 mg daily. Denies any prior history of GI bleed. No prior colonoscopies. Upon arrival to emergency roomHis laboratory workup showed a WBC of 9.2, hemoglobin of 14.0, hematocrit of 38.9 and a platelet count of 209. INR of 1.05. Sodium 139, potassium 3.7, chloride 102, bicarb 27, BUN 17 and creatinine of 0.9. Glucose of 133. Urinalysis showed 2+ blood, 0 to 4 RBC, negative leukocyte esterase or nitrates. CT abdomen pelvis was performed which did not show any evidence of acute abnormality. Review of Systems General: Reports: 10 or more systems reviewed and unremarkable except in HPI and below Medications/Allergies Home Medications Medication Instructions Recorded Confirmed Last Taken Type Advair Diskus 1 inh INHALATION BID 12/27/19 12/27/19 1 Week Ago History ~12/20/19 betamethasone dipropionate 1 applic TOPICAL BID PRN 12/27/19 12/27/19 Unknown History desonide 1 applic TOPICAL BID PRN 12/27/19 12/27/19 Unknown History fluocinonide 1 applic TOPICAL BID PRN 12/27/19 12/27/19 Unknown History hydrochlorothiazide 25 mg PO DAILY 12/27/19 12/27/19 1 Day Ago History ~12/26/19 ketoconazole 1 applic TOPICAL Q14D PRN 12/27/19 12/27/19 Unknown History melatonin 20 mg PO BEDTIME 12/27/19 12/27/19 12/25/19 History metoprolol tartrate 25 mg PO BID #60 tab 12/27/19 Unknown Rx Allergies Allergy/AdvReac Type Severity Reaction Status Date / Time No Known Allergies Allergy Verified 12/27/19 03:35 PFSH Acute PFSH: Medical History (Updated 08/16/20 @ 03:43 by Patricia Oro MD) BPH (benign prostatic hyperplasia) Hypertension Paroxysmal A-fib Psoriasis Rheumatoid arthritis Surgical History No pertinent past surgical history Family History Father CAD (coronary artery disease) [place] age 82 Social History Smoking and tobacco status: former smoker Quit status (tobacco): has quit using tobacco Former quit date comment: 2012 Alcohol intake: never Lives independently: Yes Housing: House Marital status details: His a month ago Vitals/I&O/Wt Last Vital Signs Temp 98.2 F 08/16/20 02:11 Pulse 73 08/16/20 02:11 Resp 16 08/16/20 02:11 BP 127/74 08/16/20 02:11 Pulse Ox 95 08/16/20 02:11 08/15/20 08/15/20 08/16/20 14:59 22:59 06:59 Intake Total 1000 / 1000 Balance 1000 / 1000 Weight last 48 hrs Weight 68.946 kg Physical Exam Narrative: EXAM NARRATIVE: General -alert awake and oriented x3 HEENT -grossly unremarkable CVS -regular rate rhythm no obvious murmurs Chest -clear to auscultation bilaterally Abdomen-soft nontender non distended Extremities-no edema Data : 08/15/20 23:30 08/15/20 23:30 A&P Assessment and plan (1) BRBPR (bright red blood per rectum): Status: Acute Bright red blood per rectum Possible diverticular bleed H&H q.6 hours Transfuse if less than 7 Discontinue aspirin Surgery consult in ER Will keep NPO overnight Paroxysmal Atrial Fibrillation NSR currently No anticoagulation Metoprolol 25 mg PO BID Hypertension Metoprolol 25 mg PO BID HCTZ 25 mg PO daily Chronic Obstructive pulmonary disease Resume Advair 1inh BID Duoneb q6hr PRN Chronic G2 diastolic dysfunction Stable - not in exacerbation On IVF however - cautious Monitor daily weight Rheumatoid arthritis Stable - not on ch. maintenance therapy GI ppx Protnix 40 mg IV BID DVT ppx SCDs Only Attestations Medical Necessity Statement*: Anticipate less than 2 midnight stay in hospital for evaluation and treatment of GI bleed Time Spent in Patient Care: Greater than 35 minutes (>than 50% of time spent in counselling and/or direct pt care on unit). Coding Level of Care Code Acute Merchandise Manager for g Fwd Diagnoses BRBPR (bright red blood per rectum) K62.5
[2020-08-16] MEDS: pantoprazole 40 mg SDV IVP ×2 (04:05→17:31)
[2020-08-16] MEDS: sodium chloride 0.9% 1,000 ML 75 ML IV (04:16)
[2020-08-16 04:44] LABS: Hematocrit 34.9 % (42.0-52.0); Hemoglobin 12.3 g/dL (11.7-16.6)
--- NOTE | 2020-08-16 04:47 | PC.NURSE ---
SHIFT NOTE pt tired and went to sleep shortly after arriving on the floor, A&O and fully aware of current condition.
--- NOTE | 2020-08-16 06:40 | P.CONIM_ITS ---
Providers/Reason For Consult Consulting Physician/Specialty*: Elvis Fraga MD Reason for Consult*: Bleeding per rectum Requesting Physician: Dr. Oro Attending Physician: Patricia Oro Primary Care Provider: Uche Villafana MD History of Present Illness History of Present Illness Chief Complaint: I have blood in stool History of present illness: Wilbur Wood is a pleasant 70 year old male presents to the emergency department with history of bleeding per rectum just last evening, not associated with abdominal pain, patient reports that he had multiple bouts of blood in stool and he also reported that he had some d izziness. Patient gives history of COPD, chronic stage II diastolic dysfunction and also history of hypertension. Patient was admitted to the hospitalist service with a hemoglobin of 14 and repeated hemoglobin today was 12.3 CT scan of the abdomen and pelvis was done and showed; Liver: Normal. No mass. Gallbladder and bile ducts: Normal. No calcified stones. No ductal dilation. Pancreas: Normal. No ductal dilation. Spleen: Calcified splenic granulomas. Adrenal glands: Normal. No mass. Kidneys and ureters: Normal. No hydronephrosis. Stomach and bowel: Mild colonic diverticulosis. Appendix: Normal appendix. Intraperitoneal space: Unremarkable. No free air. No significant fluid collection. Vasculature: Calcification of the abdominal aorta and/or iliac arteries consistent with atherosclerotic vessel disease. One or more calcified pelvic phleboliths. Lymph nodes: Unremarkable. No enlarged lymph nodes. Urinary bladder: Unremarkable as visualized. Reproductive: Unremarkable as visualized. Bones/joints: Unremarkable. No acute fracture. Soft tissues: Unremarkable. General surgery was consulted for further evaluation, note patient never had a colonoscopy before and he denies history of colon cancer or nonintentional weight loss. Also patient reports no history of peptic ulcer disease that would explain his bleeding per rectum originating from the foregut Review of Systems General: Reports: 10 or more systems reviewed and unremarkable except in HPI and below Meds/Allergies Home Medications and Allergies Home Medications Medication Instructions Recorded Confirmed Last Taken Type betamethasone dipropionate 1 applic TOPICAL BID PRN 12/27/19 08/16/20 Unknown History desonide 1 applic TOPICAL BID PRN 12/27/19 08/16/20 Unknown History fluocinonide 1 applic TOPICAL BID PRN 12/27/19 08/16/20 Unknown History fluticasone propion-salmeterol 1 inh INHALATION PRN 12/27/19 08/16/20 1 Week Ago History [Advair Diskus] ~12/20/19 ketoconazole 1 applic TOPICAL Q14D PRN 12/27/19 08/16/20 08/15/20 History melatonin 20 mg PO BEDTIME 12/27/19 08/16/20 12/25/19 History Cayenne Pills 1 cap PO DAILY 08/16/20 08/16/20 Unknown History Pygeum Bark 1 tab PO DAILY 08/16/20 08/16/20 Unknown History Vitamin D3 1 cap PO DAILY 08/16/20 08/16/20 Unknown History apple cider vinegar 2 tab PO DAILY 08/16/20 08/16/20 Unknown History aspirin [Aspir-81] 81 mg PO BEDTIME 08/16/20 08/16/20 Unknown History ibuprofen-diphenhydramine cit 2 tab PO BEDTIME 08/16/20 08/16/20 Unknown History [Ibuprofen PM] metoprolol tartrate 12.5 mg PO BID 08/16/20 08/16/20 Unknown History multivitamin 1 tab PO DAILY 08/16/20 08/16/20 Unknown History secukinumab [Cosentyx Pen (2 Pens)] 300 mg SUBCUT Q30D 08/16/20 08/16/20 08/01/20 History tamsulosin 0.4 mg PO BEDTIME 08/16/20 08/16/20 Unknown History zinc 1 cap PO DAILY 08/16/20 08/16/20 Unknown History Allergies Allergy/AdvReac Type Severity Reaction Status Date / Time No Known Allergies Allergy Verified 08/16/20 10:55 Current Medications Current Medications Generic Name Dose Route Start Last Admin Trade Name Freq PRN Reason Stop Dose Admin Sodium Chloride 1,000 mls @ 75 mls/hr 08/16/20 03:30 08/16/20 04:16 Sodium Chloride 0.9% IV 75 mls/hr .[id number] PRISCILLA Administration Pantoprazole Sodium 40 mg 08/16/20 03:30 08/16/20 04:05 Pantoprazole 40 Mg Sdv IVP 40 mg Q12H PRISCILLA Administration PFSH Acute PFSH: Medical History (Updated 08/16/20 @ 10:45 by Tom Vogel MD) BPH (benign prostatic hyperplasia) Hypertension Paroxysmal A-fib Psoriasis Rheumatoid arthritis Surgical History No pertinent past surgical history Family History Father CAD (coronary artery disease) [place] age 82 Social History Smoking and tobacco status: former smoker Quit status (tobacco): has quit using tobacco Former quit date comment: 2012 Alcohol intake: never Lives independently: Yes Housing: House Marital status details: His a month ago Vitals/I&O/Wt Last Vital Signs Temp 97.6 F 08/16/20 04:00 Pulse 69 08/16/20 04:00 Resp 16 08/16/20 04:00 BP 108/69 08/16/20 04:00 Pulse Ox 93 08/16/20 04:00 08/15/20 08/15/20 08/16/20 14:59 22:59 06:59 Intake Total 1000 / 1000 Balance 1000 / 1000 Weight last 48 hrs Weight 152 lb Physical Exam Const: COMMON NORMALS: no acute distress and patient oriented x3 GENERAL APPEARANCE: cooperative ORIENTATION/CONSCIOUSNESS: Yes awake, Yes oriented to person, Yes oriented to place and Yes oriented to time HENMT: COMMON NORMALS: normocephalic HEAD & SCALP: normocephalic Eye: COMMON NORMALS: Equal, round and reactive pupils present and no scleral icterus PUPIL: Yes Equal, round and reactive pupils present Lymph: LYMPHATIC: no lymphadenopathy noted Chest: COMMONS NORMALS: normal inspection of the chest Resp: COMMON NORMALS: normal respiratory effort and clear to auscultation bilaterally AUSCULTATION: clear to auscultation bilaterally Cardio: COMMON NORMALS: S1 normal heart sound present and S2 normal heart sound present; negative for No murmurs present (Cardio) HEART SOUNDS: S1 normal heart sound present and S2 normal heart sound present GI: COMMON NORMALS: Soft to palpation; negative for No hepatosplenomegaly present INSPECTION: Yes normal to inspection PALPATION: Yes Soft to palpation, No Firmness to palpation present (GI), No Tenderness to palpation present (GI), No Guarding due to palpation present (GI), No Rigid due to palpation and No No hepatosplenomegaly present Neuro: COMMON NORMALS: patient oriented x3 SENSORIUM/ORIENTATION: Yes oriented to person, Yes oriented to place and Yes oriented to time Psych: COMMON NORMALS: mental status grossly normal Skin: COMMON NORMALS: no rashes or lesions noted GENERAL SKIN EXAM: no rashes or lesions noted A&P Assessment and plan (1) BRBPR (bright red blood per rectum): Plan of care; After thorough history and physical examination and reviewing the chart, plan to perform diagnostic colonoscopy tomorrow in the GI lab. I discussed with the patient in details the risks,benefits,alternatives and indications.The risk of aspiration, bleeding, soft tissue injury, perforation of the colon and other potential concomitant complications were explained to the patient in details,also the potential need for Laproscoy/Laparotomy to repair any related complications including but not limited to colectomy and or Closotomy.The patient understood this well. Rationale was carefully and clearly discussed with the patient. All questions have been answered and all concerns have been addressed to patient's satisfaction. Verbal and written Instructions were given to the patient for colonoscopy prep Patient would like to discuss with his family with regard how to proceed, I did explain for the patient if he decides to proceed with colonoscopy will need to start GoLYTELY today with the plan to perform colonoscopy tomorrow. 1300 Patient decided through the day to proceed with colonoscopy tomorrow and infor med consent per chart Status: Acute (2) Diverticulosis: Plan of care; Review the pathology with the patient Return to primary care provider Avoid constipation Avoid seeds nuts and popcorn High Fiber diet; As Fiber softens the stool and helps prevent constipation. It also can help decrease pressure in the colon and help prevent flare-ups of diverticulitis. High-fiber foods include: ? Beans and legumes ? Bran, whole wheat bread and whole grain cereals such as oatmeal ? Brown and wild rice ? Fruits such as apples, bananas and pears ? Vegetables such as broccoli, carrots, corn and squash ? Whole wheat pasta The target is to eat 25 to 30 grams of fiber daily. Drink at least 8 cups of fluid daily. Fluid will help soften your stool.Exercise also promotes bowel movement and helps prevent constipation. Weight management Assurance and education All questions have been answered Status: Chronic Consult Attestations Medical Necessity Statement: Ongoing hospitalization passing 2 midnights for management of bleeding per rectum Time Spent in Patient Care: (>than 50% of time spent in counselling and/or direct pt care on unit) . Coding Level of Care Code Acute Public Address System Mechanic for Chg Fwd Exam Comprehensive Diagnoses BRBPR (bright red blood per rectum) K62.5 Diverticulosis K57.90
[2020-08-16 09:54] LABS: Hematocrit 36.7 % (42.0-52.0); Hemoglobin 12.9 g/dL (11.7-16.6)
--- NOTE | 2020-08-16 10:43 | P.PN_ITS ---
Subjective Subjective: Interval history: Admitted last night. H&P and labs noted. Patient has not had any further active bleeding overnight. Denies any nausea, vomiting. Anxious to go home. We discussed in detail that given the 5 patient has symptomatic drop in hemoglobin of 2 points after 4 episodes of bright red blood per rectum further investigation with colonoscopy is warranted for which she will need colon prep. We also discussed with colon prep patient can have further bleeding for which he would require continuous monitoring and may be repeat hemoglobin in the evening that if it is important for him to do the colon prep at hospital. Patient has agreed with the plan for now. Vitals/I&O/Wt Last Vital Signs Temp 97.4 F L 08/16/20 10:30 Pulse 76 08/16/20 10:30 Resp 18 08/16/20 10:30 BP 140/82 08/16/20 10:30 Pulse Ox 96 08/16/20 10:30 08/15/20 08/16/20 08/16/20 22:59 06:59 14:59 Intake Total 1000 / 1000 Output Total 120 / 120 Balance 1000 / 1000 -120 / -120 Weight last 48 hrs Weight 68.946 kg Physical Exam Narrative: EXAM NARRATIVE: General -alert awake and oriented x3 HEENT -grossly unremarkable CVS -regular rate rhythm no obvious murmurs Chest -clear to auscultation bilaterally Abdomen-soft nontender non distended Extremities-no edema Data : 08/16/20 09:38 08/15/20 23:30 A&P Assessment and plan (1) BRBPR (bright red blood per rectum): Status: Acute (2) Lower gastrointestinal hemorrhage: Status: Acute (3) Hypertension: Status: Acute (4) Paroxysmal A-fib: Status: Acute Bright red blood per rectum: Most likely lower GI bleeding Surgical recommendations appreciated. Colonoscopy most likely tomorrow. Colon prep with GoLYTELY. Hemoglobin stable today morning to 12.9. Check CBC daily for now until this patient has more active bleeding. Check iron panel, vitamin B12, folate levels. Transfuse if hemoglobin drops below 7 or if patient has hemodynamic instability. Can start on clear liquid diet for now. Protonix 40 mg IV every 12 hourly. Paroxysmal Atrial Fibrillation NSR currently No anticoagulation Metoprolol 25 mg PO BID Hypertension: Goal blood pressure less than 140/90 mmHg. Continue home dose of metoprolol. For now hold off on hydrochlorothiazide to prevent dehydration. Chronic Obstructive pulmonary disease Resume Advair 1inh BID Duoneb q6hr PRN Chronic G2 diastolic dysfunction Stable - not in exacerbation Straightening proper charting. Gentle IV hydration while monitoring for fluid overload. Daily weights. Rheumatoid arthritis Stable - not on ch. maintenance therapy Full code. SCDs for DVT prophylaxis given acute bleeding. Clear liquid diet. Attestations Medical Necessity Statement*: Wilbur Wood is being changed to inpatient status as stay will now exceed 2 midnights. Ongoing hospital care is necessary for symptomatic acute lower GI bleeding requiring colonoscopy after colon prep Time Spent in Patient Care: Greater than 35 minutes (>than 50% of time spent in counselling and/or direct pt care on unit) . Coding Level of Care Code Acute Assisted Living Director for Chg Fwd Diagnoses BRBPR (bright red blood per rectum) K62.5 Lower gastrointestinal hemorrhage K92.2 Hypertension I10 Paroxysmal A-fib I48.0
--- NOTE | 2020-08-16 10:56 | PC.PHAR ---
pt states he takes care of his own medications-pt states he has a advair inhaler-pt states this is an old rx he has-ext med history doesnt show last time filled-pt states he pulled this medication out the other day and said it had sometime 2019-pt states hctz 25mg daily filled on 07/20/20 90d/s was dced-pt states he takes metoprolol tart 12.5mg bid rx filled on 07/24/20 30d/s for 25 mg po bid
--- NOTE | 2020-08-16 10:58 | PC.CHAP ---
Pastoral Care Encounter/Spiritual Assessment Type of Contact [] Declined hotel operation manager visit [] Patient/Family/Request visit [] Outpatient visit [] Follow-up visit [] Physician referral [] Code/Alert [x] Routine visit [] Staff referral [] Actively dying [] Patient sleeping [] Family support [] [] Out of room [] Palliative care [] [] Receiving care in room [] Pre-surgical visit [] Trauma [] Long length of stay [] ICU visit [] Other: Relational/Emotional Strength [x] Patient feels connected with others/family/visitors/staff [] Distress [] Loneliness/isolation [] Abandonment Spirituality of Patient [x] Person of Therese [x] Attends Sikh of their [place] [] Believes in Prayer [] Reads Bible or Muslim materials [] There are Spiritual issues to be addressed Photofinishing Laboratory Worker Interventions [x] Prayer [x] Active listening [] Non-anxious presence [] Spiritual/emotional support [] Crisis/trauma care [] Spiritual counseling [] Bereavement support [] Provided bereavement packet [] Provided Bible/devotional materials [] Provided toy/stuffed animal, coloring book to patient or family member [] Provided Communion [] Anointing/Samson [] Salvation [x] Completed spiritual assessment [] Other: Impact on Illness or Injury [] Angry [] Fearful [] Anxious [] Often cries [] Exhaustion [] Unable to work [] Unable to attend anglican [] Unable to walk/stand [] Unable to read [] Unable to drive [] Unable to eat/drink [] Unable to sleep [] Unable to be with family [] Patient intubated [] Other: Summary Time spent with patient
[2020-08-16 12:00] LABS: Thyroid Stimulating Hormone 1.06 uIU/mL (0.27-4.20)
[2020-08-16] MEDS: metoprolol tartrate 25 mg Tablet PO ×2 (12:32→21:07)
[2020-08-16] MEDS: peg /e-lyte soln 4,000 mL Btl 4000 ML PO (12:32)
[2020-08-16 14:34] LABS: Iron 83 ug/dL (59-158); Total Iron Binding Capacity 224 mcg/dl; Unsaturated Iron Binding 141 ug/dL (112-347)
--- NOTE | 2020-08-16 21:22 | PC.NURSE ---
declined full tab of 25mg metoprolol, insisted on taking only half tab (12.5 mg), stated he only takes 1/2 tab at home. currently refusing IV fkuids at this time due to consistently using bathroom, currently on bowel prep.
[2020-08-16] MEDS: sodium chloride 0.9% 1,000 ML 30 ML IV (23:59)
[2020-08-17] VITALS (9 sets, daily range): BP systolic 99–144; BP diastolic 53–78; PULSE 53–89; RESP 16–18; TEMP 36.4–36.9; O2SAT 92–96
[2020-08-17 05:42] LABS: Basophils % 0.7 %; Eosinophils # 0.3 10^3/uL (0.0-0.8); Eosinophils % 5.2 %; Hematocrit 32.1 % (42.0-52.0); Hemoglobin 11.2 g/dL (11.7-16.6); Lymphocytes # 1.6 10^3/uL (0.8-4.8); Mean Corpuscular HGB Conc 34.9 g/dL (30.0-36.0); Mean Corpuscular Hemoglobin 32.7 pg (28.0-34.0); Mean Corpuscular Volume 93.9 fL (80-94); Mean Platelet Volume 9.5 fL (7.4-10.4); Monocytes # 0.5 10^3/uL (0.2-0.9); Monocytes % 9.5 %; Neutrophils # 3.09 10^3/uL (1.8-7.7); Neutrophils % 55.6 %; Nucleated Red Blood Cells % 0 %; Platelet Count 156 10^3/cmm (130-400); Red Blood Count 3.42 10^6/uL (4.1-5.3); White Blood Count 5.6 10^3/uL (4.0-10.0)
[2020-08-17] MEDS: pantoprazole 40 mg SDV IVP (05:56)
[2020-08-17 06:02] LABS: Alanine Aminotransferase 14 U/L (0-41); Albumin Level 3.6 g/dL (3.5-5.2); Alkaline Phosphatase 51 IU/L (40-130); Anion Gap 11.9 (5-19); Aspartate Amino Transferase 18 U/L (0-40); Blood Urea Nitrogen 11 mg/dL (8-23); Carbon Dioxide 29 mmol/L (22-29); Chloride 107 mmol/L (98-107); Glomerular Filtration Rate 95.8 mL/min (90-130); Glucose 90 mg/dL (65-115); Osmolality Calculated 297 mOsm/kg (285-295); Phosphorus 2.5 mg/dL (2.5-4.5); Potassium 3.9 mmol/L (3.5-5.1); Sodium 144 mmol/L (136-145); Total Bilirubin 0.4 mg/dL (0.15-1.2); Total Protein 5.6 g/dL (6.6-8.7)
--- NOTE | 2020-08-17 06:28 | PM.PN ---
Subjective Subjective: Interval history: No acute events overnight and overall patient denies any bleeding per rectum.Patient undergone colonoscopy prep. Medications: Reviewed: Yes Vitals/I&O/Wt Last Vital Signs Temp 98.5 F 08/17/20 04:00 Pulse 64 08/17/20 04:00 Resp 18 08/17/20 04:00 BP 122/70 08/17/20 04:00 Pulse Ox 92 08/17/20 04:00 08/16/20 08/16/20 08/17/20 14:59 22:59 06:59 Intake Total 1260 / 1260 0 / 1260 Output Total 120 / 120 250 / 370 Balance -120 / -120 1260 / 1140 -250 / 890 Weight last 48 hrs Weight 152 lb Physical Exam Narrative: EXAM NARRATIVE: Patient is conscious alert oriented X3 BMI 24.5 Head and neck examination PERRLA no masses no cervical lymphadenopathy no jaundice Abdomen nontender nondistended soft no organomegaly guarding or rigidity/no signs of peritonitis Data : 08/17/20 05:34 08/17/20 05:34 Micro: Microbiology 08/16/20 16:02 Occult Blood (FIT) - Final Stool Routine Collection A&P Assessment and plan (1) BRBPR (bright red blood per rectum): Plan of care; After thorough history and physical examination and reviewing the chart, plan to perform diagnostic colonoscopyToday. I discussed with the patient in details the risks,benefits,alternatives and indications.The risk of aspiration, bleeding, soft tissue injury, perforation of the colon and other potential concomitant complications were explained to the patient in details,also the potential need for Laproscoy/Laparotomy to repair any related complications including but not limited to colectomy and or Closotomy.The patient understood this well and did agree to proceed. Rationale was carefully and clearly discussed with the patient.Appropriate informed consent have been reviewed and signed All questions have been answered and all concerns have been addressed to patient's satisfaction. Verbal and written Instructions were given to the patient for colonoscopy prep Status: Acute Attestations Medical Necessity Statement*: Patient hospitalization will require inpatient admission passing 2 midnights Time Spent in Patient Care: Greater than 35 minutes (>than 50% of time spent in counselling and/or direct pt care on unit). Coding Level of Care Code Acute Power Station Operator for Chg Fwd Diagnoses BRBPR (bright red blood per rectum) K62.5
[2020-08-17] MEDS: sodium chloride 0.9% 1,000 ML 30 ML IV (06:45)
--- NOTE | 2020-08-17 07:12 | ANES.PREANE2 ---
Pre-Anesthetic Assessment Pre-Anesthetic Assessment: Height/Weight: Height 1.68 m Weight 68.946 kg Temp Pulse Resp BP Pulse Ox 97.7 F 62 18 130/74 92 08/17/20 06:46 08/17/20 06:46 08/17/20 06:46 08/17/20 06:46 08/17/20 06:46 Preop Diagnosis: Colonoscopy Proposed Procedure: Operation Date: 08/17/20 07:30 Proposed Procedures p Colonoscopy(Not Applicable) - Elvis Fraga MD Was Beta Suki taken within 24 hours: Yes Was Clonidine taken within 24 hours: N/A Last intake: Intake Last Liquid Date 08/16/20 Last Liquid Time 23:30 Last Solid Date 08/15/20 Last Solid Time 19:00 Social: Social History: Tobacco (h/o smoking) and No alcohol Exam: Pre-Anes Outpt Exam: alert, oriented x 3 and regular rate & rhythm Airway: Submandibular: WNL Cervical ROM: WNL MP: 2 Dentition: Chipped and Loose Pulmonary: Pulmonary: COPD CV/HEM: CV/HEM: Afib and HTN Anesthetic Plan: ASA status: 3 Anesthesia: MAC Risk of > 500 ml blood loss (7ml/kg in children): No Meds/Allergies Current Medications: Current Medications Generic Name Dose Route Start Last Admin Trade Name Freq PRN Reason Stop Dose Admin Sodium Chloride 1,000 mls @ 30 ml s/hr 08/16/20 08:00 08/17/20 06:52 Sodium Chloride 0.9% IV 08/17/20 07:59 30 mls/hr .Q24H ONE Administration Metoprolol Tartrat e 25 mg 08/16/20 11:00 08/16/20 21:07 Metoprolol Tartr ate 25 Mg Tablet PO 25 mg BID@0900,2100 PRISCILLA Administration Pantoprazole Sodiu m 40 mg 08/16/20 03:30 08/17/20 05:56 Pantoprazole 40 Mg Sdv IVP 40 mg Q12H PRISCILLA Administration Fluticasone/Salmet john 1 puff 08/16/20 20:00 08/16/20 22:01 Fluticasone-Salm eterol 100-50 Disk us INHALATION 1 puff BID.RESPIRATORY S CH Administration PFSH Anesthesia PFSH: Medical History (Updated 08/16/20 @ 10:45 by Tom Vogel MD) BPH (benign prostatic hyperplasia) Hypertension Paroxysmal A-fib Psoriasis Rheumatoid arthritis Surgical History No pertinent past surgical history Family History Father CAD (coronary artery disease) [place] age 82 Social History Smoking and tobacco status: former smoker Quit status (tobacco): has quit using tobacco Former quit date comment: 2012 Alcohol intake: never Lives independently: Yes Housing: House Marital status details: His a month ago Data Anesthesia CBC & Chem 7: 08/17/20 05:34 08/17/20 05:34 Other Labs: Laboratory Results - last 48 hr 08/15/20 08/15/20 08/16/20 23:30 23:30 00:23 WBC 9.2 RBC 4.20 Hgb 14.0 Hct 38.9 L MCV 92.6 MCH 33.3 MCHC 36.0 RDW 11.9 L Plt Count 209 MPV 10.1 Neut % (Auto) 54.4 Lymph % (Auto) 33.1 [place] % (Auto) 7.9 Eos % (Auto) 3.8 Baso % (Auto) 0.6 Neut # (Auto) 5.02 Lymph # (Auto) 3.1 [place] # (Auto) 0.7 Eos # (Auto) 0.4 Baso # (Auto) 0.1 Nucleated RBC % (auto) 0 Nucleated RBCs # 0.0 PT INR APTT Sodium 139 Potassium 3.7 Chloride 102 Carbon Dioxide 27 Anion Gap 13.7 BUN 17 Creatinine 0.9 GFR Calculation 83.7 L Glucose 133 H Calculated Osmolality 291 Calcium 9.2 Phosphorus Iron TIBC % Saturation Unsat Iron Binding Total Bilirubin 0.3 AST 19 ALT 16 Alkaline Phosphatase 68 Total Protein 6.8 Albumin 4.1 Globulin 2.7 TSH Urine Color Urine Appearance Urine pH Ur Specific [place] Urine Protein Urine Glucose (UA) Urine Ketones Urine Blood Urine Nitrate Urine Bilirubin Urine Urobilinogen Ur Leukocyte Esterase Urine RBC Urine WBC Ur Squamous Epith Cells Amorphous Sediment Urine Bacteria Urine Mucus Blood Type A Positive Rho(D) Type Positive / 4+ Antibody Screen Negative 08/16/20 08/16/20 08/16/20 00:23 01:16 04:39 WBC RBC Hgb 12.3 Hct 34.9 L MCV MCH MCHC RDW Plt Count MPV Neut % (Auto) Lymph % (Auto) [place] % (Auto) Eos % (Auto) Baso % (Auto) Neut # (Auto) Lymph # (Auto) [place] # (Auto) Eos # (Auto) Baso # (Auto) Nucleated RBC % (auto) Nucleated RBCs # PT 14.00 INR 1.05 APTT 23.2 L Sodium Potassium Chloride Carbon Dioxide Anion Gap BUN Creatinine GFR Calculation Glucose Calculated Osmolality Calcium Phosphorus Iron TIBC % Saturation Unsat Iron Binding Total Bilirubin AST ALT Alkaline Phosphatase Total Protein Albumin Globulin TSH Urine Color Yellow Urine Appearance Clear Urine pH 7 Ur Specific [place] 1.010 Urine Protein Trace Urine Glucose (UA) Norm Urine Ketones Negative Urine Blood 2+ H Urine Nitrate Negative Urine Bilirubin Neg Urine Urobilinogen Norm Ur Leukocyte Esterase Negative Urine RBC 0-4 H Urine WBC 25-40 H Ur Squamous Epith Cells 0-4 H Amorphous Sediment Not Reportable Urine Bacteria Trace Urine Mucus 1+ Blood Type Rho(D) Type Antibody Screen 08/16/20 08/16/20 08/16/20 09:38 09:38 09:38 WBC RBC Hgb 12.9 Hct 36.7 L MCV MCH MCHC RDW Plt Count MPV Neut % (Auto) Lymph % (Auto) [place] % (Auto) Eos % (Auto) Baso % (Auto) Neut # (Auto) Lymph # (Auto) [place] # (Auto) Eos # (Auto) Baso # (Auto) Nucleated RBC % (auto) Nucleated RBCs # PT INR APTT Sodium Potassium Chloride Carbon Dioxide Anion Gap BUN Creatinine GFR Calculation Glucose Calculated Osmolality Calcium Phosphorus Iron 83 TIBC 224 % Saturation 37.0 Unsat Iron Binding 141 Total Bilirubin AST ALT Alkaline Phosphatase Total Protein Albumin Globulin TSH 1.06 Urine Color Urine Appearance Urine pH Ur Specific [place] Urine Protein Urine Glucose (UA) Urine Ketones Urine Blood Urine Nitrate Urine Bilirubin Urine Urobilinogen Ur Leukocyte Esterase Urine RBC Urine WBC Ur Squamous Epith Cells Amorphous Sediment Urine Bacteria Urine Mucus Blood Type Rho(D) Type Antibody Screen 08/17/20 08/17/20 05:34 05:34 WBC 5.6 RBC 3.42 L Hgb 11.2 L Hct 32.1 L MCV 93.9 MCH 32.7 MCHC 34.9 RDW 12.0 L Plt Count 156 MPV 9.5 Neut % (Auto) 55.6 Lymph % (Auto) 29.0 [place] % (Auto) 9.5 Eos % (Auto) 5.2 Baso % (Auto) 0.7 Neut # (Auto) 3.09 Lymph # (Auto) 1.6 [place] # (Auto) 0.5 Eos # (Auto) 0.3 Baso # (Auto) 0.0 Nucleated RBC % (auto) 0 Nucleated RBCs # 0.0 PT INR APTT Sodium 144 Potassium 3.9 Chloride 107 Carbon Dioxide 29 Anion Gap 11.9 BUN 11 Creatinine 0.8 GFR Calculation 95.8 Glucose 90 Calculated Osmolality 297 H Calcium 8.0 L Phosphorus 2.5 Iron TIBC % Saturation Unsat Iron Binding Total Bilirubin 0.4 AST 18 ALT 14 Alkaline Phosphatase 51 Total Protein 5.6 L Albumin 3.6 Globulin 2.0 TSH Urine Color Urine Appearance Urine pH Ur Specific [place] Urine Protein Urine Glucose (UA) Urine Ketones Urine Blood Urine Nitrate Urine Bilirubin Urine Urobilinogen Ur Leukocyte Esterase Urine RBC Urine WBC Ur Squamous Epith Cells Amorphous Sediment Urine Bacteria Urine Mucus Blood Type Rho(D) Type Antibody Screen Micro: Microbiology 08/16/20 16:02 Occult Blood (FIT) - Final Stool Routine Collection Cardiac Studies: No Data to Display
--- NOTE | 2020-08-17 10:03 | P.DS_ITS ---
Discharge Providers Date of Admission: 08/16/20 18:21 Date of Discharge: August 17, 2020 Attending Provider at Admission: Patricia Oro Attending Provider at Discharge: Tom Vogel MD Primary Care Provider: Uche Villafana MD Diagnoses at Discharge Discharge Diagnosis (1) BRBPR (bright red blood per rectum): Status: Acute Reason for Visit Reason for Visit: blood in stool Hospital Course Hospital Course 70-year-old with a past medical history significant for remote history of tobacco abuse, chronic obstructive pulmonary disease, chronic stage II diastolic dysfunction, and hypertension who presented to the hospital with bright red blood per rectum. Patient stated this started last evening. Noted multiple episodes. After this patient started to feel somewhat lightheaded in dizzy. Denied chest discomfort. No shortness of breath. Denied abdominal pain. No prior history of GI bleed. Takes aspirin 81 mg daily. Denies any prior history of GI bleed. No prior colonoscopies. Upon arrival to emergency roomHis laboratory workup showed a WBC of 9.2, hemoglobin of 14.0, hematocrit of 38.9 and a platelet count of 209. INR of 1.05. Sodium 139, potassium 3.7, chloride 102, bicarb 27, BUN 17 and creatinine of 0.9. Glucose of 133. Urinalysis showed 2+ blood, 0 to 4 RBC, negative leukocyte esterase or nitrates. Patient was admitted to the hospital for symptomatic blood loss anemia. He did not have any further bleeding or melena. Surgery was consulted and he underwent bowel prep after which he underwent colonoscopy on August 17, 2020. His hemoglobin slowly trended down to 11.2 on the day of discharge which is most likely the equilibrium after acute blood loss 2 nights ago. Colonoscopy showed a sessile 2 mm polyp which was excised along with multiple diverticuli without any active site of bleeding. He is been discharged hemodynamically stable condition with advised to take [id number] stool softener as needed, oral iron supplementation and to follow-up with his primary care provider within next 2 weeks for a repeat CBC. He is also advised to follow-up with Dr. Fraga as an outpatient in next 1 week. . Physical Exam Narrative: EXAM NARRATIVE: General -alert awake and oriented x3 HEENT -grossly unremarkable CVS -regular rate rhythm no obvious murmurs Chest -clear to auscultation bilaterally Abdomen-soft nontender non distended Extremities-no edema Discharge Data Data Completed and Pending: Completed Studies During Hospitalization Category Date Time Status CT abdomen pelvis w con* [id number] Stat Cat Scan 08/16/20 00:33 Completed XR acute abdomen series [id number] Stat Exams 08/15/20 23:55 Completed Pending at discharge Category Date Time Status Urine Culture Sta t Lab 08/16/20 01:16 Results Pathology: Surgic al [PTH] Routine Pth 08/17/20 07:44 Received Labs from last 24 hours 08/17/20 08/17/20 08/16/20 05:34 05:34 09:38 WBC 5.6 RBC 3.42 L Hgb 11.2 L Hct 32.1 L MCV 93.9 MCH 32.7 MCHC 34.9 RDW 12.0 L Plt Count 156 MPV 9.5 Neut % (Auto) 55.6 Lymph % (Auto) 29.0 [place] % (Auto) 9.5 Eos % (Auto) 5.2 Baso % (Auto) 0.7 Neut # (Auto) 3.09 Lymph # (Auto) 1.6 [place] # (Auto) 0.5 Eos # (Auto) 0.3 Baso # (Auto) 0.0 Nucleated RBC % (a uto) 0 Nucleated RBCs # 0.0 Sodium 144 Potassium 3.9 Chloride 107 Carbon Dioxide 29 Anion Gap 11.9 BUN 11 Creatinine 0.8 GFR Calculation 95.8 Glucose 90 Calculated Osmolal ity 297 H Calcium 8.0 L Phosphorus 2.5 Iron TIBC % Saturation Unsat Iron Binding Total Bilirubin 0.4 AST 18 ALT 14 Alkaline Phosphata se 51 Total Protein 5.6 L Albumin 3.6 Globulin 2.0 TSH 1.06 08/16/20 09:38 WBC RBC Hgb Hct MCV MCH MCHC RDW Plt Count MPV Neut % (Auto) Lymph % (Auto) Wood[place] % (Auto) Eos % (Auto) Baso % (Auto) Neut # (Auto) Lymph # (Auto) [place] # (Auto) Eos # (Auto) Baso # (Auto) Nucleated RBC % (a uto) Nucleated RBCs # Sodium Potassium Chloride Carbon Dioxide Anion Gap BUN Creatinine GFR Calculation Glucose Calculated Osmolal ity Calcium Phosphorus Iron 83 TIBC 224 % Saturation 37.0 Unsat Iron Binding 141 Total Bilirubin AST ALT Alkaline Phosphata se Total Protein Albumin Globulin TSH Vitals: Last Vital Signs Temp 98.1 F 08/17/20 08:42 Pulse 66 08/17/20 08:42 Resp 16 08/17/20 08:42 BP 114/68 08/17/20 08:42 Pulse Ox 95 08/17/20 08:42 Discharge Plan Discharge Patient Disposition: Home Condition: Stable Prescriptions: New Dexilant 30 mg capsule,biphase delayed releas 30 mg PO DAILY Qty: 20 RF: 0 ferrous gluconate 324 mg (38 mg iron) tablet 324 mg PO BID Qty: 60 RF: 0 Continued multivitamin Tablet 1 tab PO DAILY RF: 0 tamsulosin 0.4 mg capsule 0.4 mg PO BEDTIME RF: 0 metoprolol tartrate 25 mg tablet 12.5 mg PO BID RF: 0 Ibuprofen PM 200-38 mg Tablet 2 tab PO BEDTIME RF: 0 Cosentyx Pen (2 Pens) 150 mg/mL Pen Injector 300 mg SUBCUT Q30D RF: 0 Cayenne Pills 1 cap PO DAILY RF: 0 Pygeum Bark 1 tab PO DAILY RF: 0 Vitamin D3 1 cap PO DAILY RF: 0 apple cider vinegar 2 tab PO DAILY RF: 0 zinc 1 cap PO DAILY RF: 0 fluocinonide 0.05 % Solution 1 applic TOPICAL BID PRN (Reason: Itching) RF: 0 ketoconazole 2 % Shampoo 1 applic TOPICAL Q14D PRN (Reason: Itching) RF: 0 betamethasone dipropionate 0.05 % Ointment 1 applic TOPICAL BID PRN (Reason: Itching) RF: 0 desonide 0.05 % Ointment 1 applic TOPICAL BID PRN (Reason: Itching) RF: 0 fluticasone propion-salmeterol [Advair Diskus] 250-50 mcg/dose Blister With Device 1 inh INHALATION PRN RF: 0 melatonin 10 mg Capsule 20 mg PO BEDTIME RF: 0 Held Aspir-81 81 mg Tablet,Delayed Release (Dr/Ec) 81 mg PO BEDTIME RF: 0 Hold Instructions: Resume on 08/24/20. Discharge Orders: Discharge Order (Routine); Ordered 08/17/20 Ordered By: Tom Vogel Referrals: Elvis Fraga MD [Physician] - 2 weeks Uche Villafana MD [Primary Care Provider] - 2 weeks (Repeat CBC.) Discharge Diet: As Directed Discharge Activity: Resume usual activity Patient Instructions: GI Discharge Instructions, Opioid Safety Activity Restrictions/Additional Instructions: Please follow-up with your primary care provider within next 2 weeks Avoid seeds, nuts and popcorn's. Please use high-fiber diet. Please avoid constipation. High-fiber food includes beans, legumes, bran, whole wheat bread, brown and white rice, vegetables such as broccoli, carrots and squash and fruits like apples and bananas. Target estimate 25 to 30 g of fibers daily and drink 8 cups of fluids daily. Please use ueke-gzn-brzqqdy stool softeners as needed. Discharge Attestations Time Spent in Discharge Care*: greater than 30 min Specific Discharge Activities: educating patient, educating and/or supporting family/caregiver, discussing with pcp/other providers, discussing with case management manager/social workers/dc planners, documenting/other paperwork and evaluating patient/reviewing data Status at Discharge: Cognitive status at discharge: cognitively intact , Behavioral status at discharge: cooperative , Functional status at discharge: independent ambulation Overall status at discharge: patient is back to baseline Quality Metrics Clinical Quality Measures During this hospital stay, did patient experience: None Coding Level of Care Code Acute Chg FW DC note Diagnoses BRBPR (bright red blood per rectum) K62.5
[2020-08-17] MEDS: metoprolol tartrate 25 mg Tablet 12.5 MG PO (11:05)
--- NOTE | 2020-08-17 11:18 | PC.CHAP ---
Pastoral Care Encounter/Spiritual Assessment Type of Contact [] Declined auditing clerk visit [] Patient/Family/Request visit [] Outpatient visit [] Follow-up visit [] Physician referral [] Code/Alert [x] Routine visit [] Staff referral [] Actively dying [] Patient sleeping [] Family support [] [] Out of room [] Palliative care [] [x] Receiving care in room [] Pre-surgical visit [] Trauma [] Long length of stay [] ICU visit [] Other: Relational/Emotional Strength [] Patient feels connected with others/family/visitors/staff [] Distress [] Loneliness/isolation [] Abandonment Spirituality of Patient [x] Person of Therese [] Attends Mandaeism of their Therese [x] Believes in Prayer [] Reads Bible or Orthodox materials [] There are Spiritual issues to be addressed [employer] Director Interventions [x] Prayer [x] Active listening [x] Non-anxious presence [x] Spiritual/emotional support [] Crisis/trauma care [x] Spiritual counseling [] Bereavement support [] Provided bereavement packet [] Provided Bible/devotional materials [] Provided toy/stuffed animal, coloring book to patient or family member [] Provided Communion [] Anointing/[place] [] Salvation [x] Completed spiritual assessment [] Other: Impact on Illness or Injury [] Angry [] Fearful [x] Anxious [] Often cries [] Exhaustion [] Unable to work [] Unable to attend quaker [] Unable to walk/stand [] Unable to read [] Unable to drive [] Unable to eat/drink [] Unable to sleep [] Unable to be with family [] Patient intubated [] Other: Summary had a stent in leg feels good and ius going home soon has agood attitude + 1 Time spent with patient 10 mins
--- NOTE | 2020-08-17 13:37 | ANE.PACU2 ---
Inpatient post-anesthesia follow up: Airway intact: Yes Vital signs: Temperature 98.1 F Pulse Rate [Monito r] 73 Pulse Rate [Orthos tatic 82 Standing Right Bra chial] Pulse Rate [Orthos tatic 73 Sitting Right Brac hial] Pulse Rate [Orthos tatic Lying 77 Right Brachial] Pulse Rate 66 Respiratory Rate 16 Blood Pressure [Or thostatic 127/79 Standing Right Arm ] Blood Pressure [Or thostatic 140/78 Sitting Right Arm] Blood Pressure [Or thostatic 110/78 Lying Right Arm] Blood Pressure [Le ft Arm] 107/68 Blood Pressure 114/68 Pulse Oximetry 95 Oxygen Delivery Me thod Room Air Oxygen Flow Rate 2 Fraction of Inspir ed Oxygen Hydration adequate: Yes Nausea and vomiting: No Pain level: 1 Mental status: Baseline
== END 2020-08-17 12:11 | disposition home or self-care (01) | DRG 378 ==
LOC: ER 08-16 00:39 → MEDSURG 08-16 01:32
PROVIDERS: Surgery; Admitting Provider Hospitalist; Emergency Provider Emergency Medicine; PCP Family Medicine; Visit Provider Student in an Organized Health Care Education/Training Program
PROC: 0DJD8ZZ Inspection of Lower Intestinal Tract, Via Natural or Artificial Opening Endoscopic (ICD-10-PCS; CPT 45378; principal; 2020-08-17 07:30)
DX: K62.5 Hemorrhage of anus and rectum (principal); I50.32 Chronic diastolic (congestive) heart failure; D50.0 Iron deficiency anemia secondary to blood loss (chronic); J44.9 Chronic obstructive pulmonary disease, unspecified; Z87.891 Personal history of nicotine dependence; I11.0 Hypertensive heart disease with heart failure; N40.0 Benign prostatic hyperplasia without lower urinary tract symptoms; I48.0 Paroxysmal atrial fibrillation; L40.9 Psoriasis, unspecified; M06.9 Rheumatoid arthritis, unspecified; K63.5 Polyp of colon; K57.30 Diverticulosis of large intestine without perforation or abscess without bleeding
CPT/HCPCS: 36415; 45380; 74022; 74177; 80053; 81001; 82274; 83540; 83550; 84100; 84443; 85014; 85018; 85025; 85610; 85730; 86850; 86900; 87086; 88305; 93005; 94640; 96360; 99285; C9113; G0378; J2704; J7030; Q9967

== ENCOUNTER 2021-01-16 12:26 | Outpatient (CLI) | payer MEDICARE, SELFPAY ==
[2021-01-16 12:35] VITALS: BP 134/86; PULSE 72; RESP 18; TEMP 36.9; O2SAT 95
[2021-01-16 13:02] VITALS: BMI 25.8
[2021-01-16 13:25] VITALS: BP 131/80; PULSE 66; RESP 18; TEMP 36.6; O2SAT 96
[2021-01-16 14:26] VITALS: BP 130/82; PULSE 67; RESP 18; TEMP 36.8; O2SAT 95
== END 2021-01-16 12:27 | disposition home or self-care (01) ==
PROVIDERS: PCP Family Medicine; Visit Provider Family Medicine
DX: U07.1 COVID-19 (principal)
CPT/HCPCS: 96365

== ENCOUNTER 2021-03-06 13:12 | Outpatient (CLI) | payer MEDICARE, SELFPAY ==
--- NOTE | 2021-03-06 13:19 | XRR_ITS ---
PROCEDURE INFORMATION: Exam: XR Chest Exam date and time: 03/06/2021 1:19 PM Age: 70 years old Clinical indication: Condition or disease; Lung condition and disease; With exacerbation; Patient HX: Copd, coughing, SOB; Additional info: Acute exacerbation copd TECHNIQUE: Imaging protocol: XR of the chest. Views: 2 views. COMPARISON: CR XR chest 1V portable [id number] 12/26/2019 10:32 PM FINDINGS: Lungs: Unremarkable. No consolidation. Pleural spaces: Unremarkable. No pleural effusion. No pneumothorax. Heart/Mediastinum: Unremarkable. No cardiomegaly. Bones/joints: Unremarkable. XR/XR chest 2V* [id number] IMPRESSION: No acute findings.
== END 2021-03-06 13:13 | disposition home or self-care (01) ==
LOC: RAD 13:15
PROVIDERS: PCP Family Medicine; Visit Provider Family Medicine
DX: J44.1 Chronic obstructive pulmonary disease with (acute) exacerbation (principal)
CPT/HCPCS: 71046

== ENCOUNTER → 2021-11-29 08:04 | Outpatient (BNVA) | payer MEDICARE, SELFPAY | PROVIDERS: PCP Family Medicine; Visit Provider Family Medicine | DX: Z00.00 Encounter for general adult medical examination without abnormal findings (principal); R31.9 Hematuria, unspecified; E78.5 Hyperlipidemia, unspecified; I10 Essential (primary) hypertension; N40.0 Benign prostatic hyperplasia without lower urinary tract symptoms | CPT/HCPCS: 80053; 80061; 81000; 81003; 84153; 85025; 87086 ==

== ENCOUNTER 2022-05-07 07:18 | Outpatient (CLI) | payer MEDICARE, SELFPAY ==
[2022-05-07 07:34] VITALS: BMI 27.4
--- NOTE | 2022-05-07 08:16 | ECG_ITS ---
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 Interpretive Statements NAME OF STUDY: EXERCISE SESTAMIBI STRESS TEST INDICATION: Chest Pain, PROCEDURE: The baseline electrocardiogram showed normal sinus rhythm with poor R wave progression. Right bundle branch block. Left anterior fascicular block . At the baseline, the patient's blood pressure was 142/85 mm Hg with a heart rate of 94. The patient exercised for 3 minutes and 43 seconds on a standard Sammy protocol. Patient attained a maximum heart rate of 154 beats per minute(102% of the maximum predicted heart rate) with a blood pressure at the peak exercise of 206/99 mm Hg. The EKG at the peak exercise is difficult to interpret because of the underlying bundle branch blocks. Patient did not have any chest pain or any significant arrhythmis with the exercise Sestamibi was injected 1 minute prior to the peak exercise During the recovery phase, there were no new changes. Blood pressure at the end of the recovery phase was 154/95 mm Hg with a heart rate of 93 per minute. CONCLUSION: 1. The EKG response to treadmill exercise is difficult to interpret because of the underlying bundle branch block . 2. No exercise-induced chest pain or cardiac arrhythmia. Hypertensive response to exercise 3. Impaired exercise tolerance, attained a maximum of 7.0 METs 4. Sestamibi/Sestamibi perfusion results pending; see separate report. Electronically Signed On 05-08-2022 0:35:28 SECOND MILLER by Lucille Gallegos M.D. [email or web address]
--- NOTE | 2022-05-07 08:16 | NMCV_ITS ---
NM frankie perf SPECT r/s* [id number] Wilbur Wood Age: 71 Gender: M : 1950 Exam Date: 05/07/2022 09:00 Ordering Phys: Uche Villafana MD Technologist: ASHA Dobbs Exam Location: [facility] Indications: CHEST PAIN STRESS TEST Please see separate stress test report in [facility] for full findings IMAGE PROTOCOL Rest/Stress 1 Exercise Day Radiopharmaceutical Dose (mCi) Administration Site Administered by Rest: Tc-99m 10.8 IV ASHA Fischer Sestamibi Stress:Tc-99m 32.7 IV ASHA Fischer Sestamibi Rest: 07-May-2022 60 Discovery 630 Stress: 07-May-2022 30 Discovery 630 Radiopharmaceutical was injected at 93 % maximum heart rate. Images obtained in supine and prone position. SPECT RESULTS Technical Quality: Excellent Raw Data Analysis: Normal Image Corrections: No attenuation or motion correction applied Summed Stress Score: 10 Summed Rest Score: 14 Summed Difference Score: 0 PERFUSION FINDINGS Moderate area of moderate to severely decreased tracer uptake in the mid and apical inferior, mid inferolateral, mid inferoseptal and apical lateral segments. No significant reversibility was noted in these regions. FUNCTIONAL RESULTS (calculated via Gated SPECT) Stress Image LV EF (%): 66 Stress EDV (mL):80 TID: 1.41 Stress ESV (mL):27 FUNCTIONAL FINDINGS: Segmental wall motion analysis revealing no gross wall motion abnormalities IMPRESSIONS 1. Myocardial perfusion imaging revealing moderate area of persistent decreased tracer uptake in the inferior, inferolateral, inferoseptal and apical regions suggesting myocardial scarring in the distribution of the right coronary artery and circumflex artery no evidence of any significant ischemia. 2. Normal LV ejection fraction of 66%. 3. LV wall motion analysis revealing no gross wall motion abnormalities. 4. Normal LV volume. 5. Elevated transient ischemic dilatation ratio (1.41), may suggest endocardial ischemia. However the positive predictive value of this finding is limited. Clinical correlation is recommended. Dr Lucille Gallegos MD FAC (Electronically Signed) Final Date: 07 May 2022 12:58 S
[2022-05-07 10:01] VITALS: BP 154/95; PULSE 93
== END 2022-05-07 07:19 | disposition home or self-care (01) ==
LOC: CDL 07:25
PROVIDERS: PCP Family Medicine; Visit Provider Family Medicine
DX: R07.9 Chest pain, unspecified (principal)
CPT/HCPCS: 36415; 78452; 93017; A9500

== ENCOUNTER → 2022-06-18 13:31 | Outpatient (BNVA) | payer MEDICARE, SELFPAY | PROVIDERS: PCP Family Medicine; Visit Provider Internal Medicine Cardiovascular Disease | DX: J44.9 Chronic obstructive pulmonary disease, unspecified (principal); R07.9 Chest pain, unspecified; I10 Essential (primary) hypertension; R94.39 Abnormal result of other cardiovascular function study; R06.00 Dyspnea, unspecified; Z79.82 Long term (current) use of aspirin | CPT/HCPCS: 99204 ==

== ENCOUNTER 2022-08-13 08:11 | Outpatient (CLI) | payer MEDICARE, SELFPAY ==
[2022-08-13 08:28] VITALS: PULSE 74; RESP 18; O2SAT 96
[2022-08-13] MEDS: albuterol 2.5 mg/3 mL Neb INHALATION (08:28)
[2022-08-13 08:33] VITALS: PULSE 76
== END 2022-08-13 08:12 | disposition home or self-care (01) ==
LOC: RT 08:12
PROVIDERS: PCP Family Medicine; Visit Provider Family Medicine
DX: J44.9 Chronic obstructive pulmonary disease, unspecified (principal); R06.00 Dyspnea, unspecified; R94.2 Abnormal results of pulmonary function studies; F17.210 Nicotine dependence, cigarettes, uncomplicated
CPT/HCPCS: 94060; 94726; 94729; J7613

== ENCOUNTER → 2022-09-17 10:50 | Outpatient (BNVA) | payer MEDICARE, SELFPAY | PROVIDERS: PCP Family Medicine; Visit Provider Internal Medicine Cardiovascular Disease | DX: R06.00 Dyspnea, unspecified (principal); R94.39 Abnormal result of other cardiovascular function study; J44.9 Chronic obstructive pulmonary disease, unspecified; I10 Essential (primary) hypertension | CPT/HCPCS: 99213 ==

== ENCOUNTER → 2022-09-19 08:20 | Outpatient (BNVA) | payer MEDICARE, SELFPAY | PROVIDERS: PCP Family Medicine; Visit Provider Family Medicine | DX: J44.9 Chronic obstructive pulmonary disease, unspecified (principal); I10 Essential (primary) hypertension | CPT/HCPCS: 80053; 80061; 85025 ==

== ENCOUNTER 2022-09-24 09:56 | Outpatient (CLI) | payer MEDICARE, SELFPAY ==
--- NOTE | 2022-09-24 09:45 | USCV_ITS ---
KiahWilbur garcia Age: 72 Gender: M : 1950 Exam Date: 09/24/2022 10:16 Ordering Phys: Prateek Alegria MD ([email or web address]) Technologist: CT Exam Location: [facility] [place] Indication: leg pain Risk Factors: Previous Vascular Surgery: RIGHT LEFT BP: 129.0 / 63.00 BP: 130.0/ 73.00 0 0 Waveform Velocity (cm/s) Velocity (cm/s) Waveform Triphasic 68.1 Iliac Prox 86.8 Triphasic Triphasic 79.1 Iliac Mid 111.4 Triphasic Triphasic 82.5 Iliac Distal 128.2 Triphasic Triphasic 86.5 [employer]ING [employer] DESIGNER 107.6 Triphasic Triphasic 83.3 SFA Prox 81.5 Triphasic Triphasic 138.1 SFA Mid 109.4 Triphasic Triphasic SFA Dist Triphasic 116.2 104.5 Triphasic 71.7 POP 86.3 Triphasic Triphasic 44.5 SUPERVISOR WATERWORKS 74.9 Triphasic Triphasic 51.6 DPA 30.1 Triphasic 1.0 DANI 1.0 FINDINGS Resting DANI 1.0 bilaterally Mild diffuse plaque in the iliac and femoral arteries bilaterally Normal Doppler flow velocities and near normal Doppler waveforms CONCLUSIONS 1. Normal resting DANI bilaterally suggesting no significant arterial obstruction. 2. Mild diffuse plaque in the iliac and femoral arteries bilaterally Dr Lucille Gallegos MD [facility] (Electronically Signed) Final Date: 25 September 2022 10:07 S
== END 2022-09-24 09:57 | disposition home or self-care (01) ==
LOC: RAD 09:56
PROVIDERS: PCP Family Medicine; Visit Provider Internal Medicine Cardiovascular Disease
DX: R06.00 Dyspnea, unspecified (principal); R94.39 Abnormal result of other cardiovascular function study; M79.605 Pain in left leg; M79.604 Pain in right leg; I70.203 Unspecified atherosclerosis of native arteries of extremities, bilateral legs; I70.8 Atherosclerosis of other arteries
CPT/HCPCS: 93925

== ENCOUNTER → 2022-11-12 11:26 | Outpatient (BNVA) | payer MEDICARE, SELFPAY | PROVIDERS: PCP Family Medicine; Visit Provider Internal Medicine Cardiovascular Disease | DX: J44.9 Chronic obstructive pulmonary disease, unspecified (principal); I10 Essential (primary) hypertension | CPT/HCPCS: 99213 ==

== ENCOUNTER → 2023-03-12 09:41 | Outpatient (BNVA) | payer MEDICARE, SELFPAY | PROVIDERS: PCP Family Medicine; Visit Provider Family Medicine | DX: I10 Essential (primary) hypertension (principal); L40.9 Psoriasis, unspecified; J44.9 Chronic obstructive pulmonary disease, unspecified | CPT/HCPCS: 80053; 80061; 85025 ==

== ENCOUNTER → 2023-04-11 14:20 | Outpatient (BNVA) | payer MEDICARE, SELFPAY | PROVIDERS: PCP Family Medicine; Visit Provider Emergency Medicine | DX: R09.81 Nasal congestion (principal) | CPT/HCPCS: 87400 ==

== ENCOUNTER 2023-04-23 13:08 | Outpatient (CLI) | payer MEDICARE, SELFPAY ==
--- NOTE | 2023-04-23 13:21 | XR_ITS ---
WS: [id number] Examination: XR chest 2V* [id number] Reason for Exam: pneumonia Date: 04/23/2023 Comparison: 03/06/2021 Findings: The heart is normal in size. The mediastinum is not widened. The orion are mildly prominent but unchan ged The lungs are hyperinflated with chronic obstructive changes. There is no evidence of congestive heart failure or pleural effusion. There is no dense consolidation . IMPRESSION: Chronic obstructive changes are present without focal infiltrate. Impression:
== END 2023-04-23 13:09 | disposition home or self-care (01) ==
LOC: RAD 13:10
PROVIDERS: PCP Family Medicine; Visit Provider Family Medicine
DX: J18.9 Pneumonia, unspecified organism (principal); J44.0 Chronic obstructive pulmonary disease with (acute) lower respiratory infection
CPT/HCPCS: 71046

== ENCOUNTER 2023-06-27 14:19 | Emergency (ER) | payer MEDICARE, SELFPAY ==
[2023-06-27 14:21] VITALS: BP 153/91; PULSE 94; RESP 15; TEMP 36.7; O2SAT 94
--- NOTE | 2023-06-27 14:32 | CTR_ITS ---
PROCEDURE INFORMATION: Exam: CT Abdomen And Pelvis With Contrast Exam date and time: 06/27/2023 3:31 PM Age: 73 years old Clinical indication: Abdominal pain; Localized; Left lower quadrant (llq); Additional info: Llq abd pain and bloody bowel movements TECHNIQUE: Imaging protocol: Computed tomography of the abdomen and pelvis with contrast. Radiation optimization: All CT scans at this facility use at least one of these dose optimization techniques: automated exposure control; mA and/or kV adjustment per patient size (includes targeted exams where dose is matched to clinical indication); or iterative reconstruction. Contrast material: OMNI 350; Contrast volume: 100 ml; Contrast route: INTRAVENOUS (IV); COMPARISON: CT abdomen pelvis w con* [id number] 08/16/2020 12:50 AM RADIATION DOSE METRICS: Total DLP (mGy-cm): 538.88 FINDINGS: Lungs: Subsegmental bibasilar atelectasis. The visualized lung bases are otherwise grossly clear. Diaphragm: No evidence of diaphragmatic defect. Liver: Hepatic steatosis. No evidence of focal hepatic lesion. Gallbladder and bile ducts: Unremarkable. No intra-hepatic or extra-hepatic biliary dilatation. Pancreas: Unremarkable. Spleen: Unremarkable. Adrenal glands: Unremarkable. Kidneys and ureters: No renal parenchymal abnormality. No hydronephrosis or ureteral stone. Stomach and bowel: Colonic diverticulosis without evidence of acute diverticulitis. There is wall thickening of the descending/sigmoid colon, likely secondary to prior bouts of diverticulitis. Consider correlation with follow-up colonoscopy to exclude an underlying mucosal lesion. No bowel obstruction or perienteric inflammatory changes. Appendix: Normal appendix. Intraperitoneal space: No evidence of free air or fluid collection. Vasculature: Extensive aortobiiliac atherosclerosis without aneurysmal dilatation or dissection. The celiac trunk, SMA and JARRETT are grossly patent. No evidence of IVC thrombus. The portal vein, SMV and splenic veins are grossly patent. Lymph nodes: No adenopathy. Urinary bladder: Grossly unremarkable. Reproductive: Grossly unremarkable. Bones/joints: No evidence of acute fracture or aggressive osseous lesion. Soft tissues: No evidence of fluid collection or hematoma in the superficial soft tissues. CT/CT abdomen pelvis w con* [id number] IMPRESSION: 1. No evidence of acute abnormality in the abdomen or pelvis. 2. Colonic diverticulosis without evidence of acute diverticulitis. There is wall thickening of the descending/sigmoid colon, likely secondary to prior bouts of diverticulitis. Consider correlation with follow-up colonoscopy to exclude an underlying mucosal lesion.
--- NOTE | 2023-06-27 14:32 | W.ED.GIBLEED ---
HPI - GI Bleed General: Chief complaint: GI Bleed Stated complaint: blood in stool Time Seen by Provider: 06/27/23 14:26 History of Present Illness: 73-year-old male presents emergency department with complaints of left lower quadrant abdominal pain. He states he has had 3 large bloody bowel movements today. He states he is also had several bowel movements over the past 3 days that have caused him to be concerned as he feels that there is a significant amount of blood after his bowel movement. He states he does have a history of diverticulitis and had his last diverticulitis flare 3 years ago. He states that the amount of blood and his abdominal discomfort on this presentation is very similar to his previous episode of diverticulitis. He states he was seen by the urgent care prior to coming to the emergency department here today and was advised that the bleeding may be from a hemorrhoid. He denies nausea vomiting fevers chills or night sweats. He states his abdominal pain is a intermittent 4 out of 10 vague cramping type pain. Associated symptoms: Reports abdominal pain Review of Systems General: Reports: 10 or more systems reviewed and unremarkable except in HPI and below Card: Denies: chest pain Resp: Denies: dyspnea GI: Reports: abdominal pain and hematochezia PFS ED PFSH: Medical History Dyspnea Abnormal stress test Paroxysmal A-fib BPH (benign prostatic hyperplasia) Rheumatoid arthritis Psoriasis Hypertension Surgical History No pertinent past surgical history Family History Father CAD (coronary artery disease) [place] age 82 Social History Smoking and tobacco/nicotine status: never used tobacco/nicotine Quit status (tobacco/nicotine): has quit using Former quit date comment: 2012 Alcohol intake: never Substance/Drug Use: current Substance/Drug use frequency: Special occassions/opportunity only Lives independently: Yes Housing: House Marital status details: His a month ago Physical Exam Narrative: EXAM NARRATIVE: Constitutional: the patient appears well nourished and of normal development. Vital signs as documented. No acute distress at present. Alert and oriented-to person, place, time and situation. Head, eyes, ears, nose, mouth, throat: Normocephalic, atraumatic. Pupils-equal, round, reactive to light. No scleral icterus. Normal-appearing external ears. Normal appearing nasal turbinates, no drainage. No obvious oral lesions, posterior oropharynx without erythema or exudates. Neck: Supple, trachea is midline, no lymphadenopathy, no jugular venous distension, thyromegaly, or carotid bruits. Carotid upstrokes are brisk bilaterally. Lungs: clear to auscultation to all lung worley. Symmetrical rise and fall of chest, no obvious signs of increased work of breathing at present. Cardiac: Regular rate and rhythm, positive S1, S2. No murmurs, rubs or gallops that I can appreciate Abdomen: Soft, tender to palpation to LLQ, normal active bowel sounds to all quadrants. No palpable masses, no organomegaly and abdominal bruits. Extremities: 2+ pulses in the upper extremities that are equal bilaterally, 2+ pulses in the lower extremities that are equal bilaterally. Non-edematous. Moves all extremities well, sensation to all extremities are noted. Skin: Warm, dry, intact. Course Vital Signs: Vital signs: Vital Signs Temperature 98.0 F 06/27/23 16:54 Pulse Rate 91 06/27/23 16:54 Respiratory Rate 16 06/27/23 16:54 Blood Pressure 147/89 06/27/23 16:54 Pulse Oximetry 95 06/27/23 16:54 Oxygen Delivery Me thod Room Air 06/27/23 14:21 MDM - GI Bleed Medical Decision Making Physical exam completed and documented, I will obtain laboratory evaluation to include a CBC, CMP and a CT scan of the patient's abdomen pelvis to evaluate for possible differential diagnosis of bowel obstruction, incarcerated hernia, abdominal wall strain, colitis, diverticulitis, GI bleed. Medical Records I reviewed the patient's medical records. Lab Data I reviewed the patient's lab results. 06/27/23 14:44 06/27/23 14:44 Radiology Impressions Abdomen/Pelvis CT 06/27/23 14:32 IMPRESSION: 1. No evidence of acute abnormality in the abdomen or pelvis. 2. Colonic diverticulosis without evidence of acute diverticulitis. There is wall thickening of the descending/sigmoid colon, likely secondary to prior bouts of diverticulitis. Consider correlation with follow-up colonoscopy to exclude an underlying mucosal lesion. Laboratory Results WBC 6.59 10^3/uL (3.29-11.43) 06/27/23 14:44 RBC 4.86 10^6/uL (3.85-5.65) 06/27/23 14:44 Hgb 16.20 g/dL (11.27-16.99) 06/27/23 14:44 Hct 45.0 % (37-53) 06/27/23 14:44 MCV 92.6 fl (82-101) 06/27/23 14:44 MCH 33.3 pg (27-33) H 06/27/23 14:44 MCHC 36.0 g/dL (30-55) 06/27/23 14:44 RDW 12.6 % (12.1-15.1) 06/27/23 14:44 Plt Count 230 10^3/cmm (157-399) 06/27/23 14:44 MPV 9.8 fL (7.4-10.4) 06/27/23 14:44 Neut % (Auto) 64.7 % 06/27/23 14:44 Lymph % (Auto) 22.9 % 06/27/23 14:44 [place] % (Auto) 8.5 % 06/27/23 14:44 Eos % (Auto) 2.6 % 06/27/23 14:44 Baso % (Auto) 0.8 % 06/27/23 14:44 Neut # (Auto) 4.27 10^3/uL (1.8-7.7) 06/27/23 14:44 Lymph # (Auto) 1.5 10^3/uL (0.8-4.8) 06/27/23 14:44 [place] # (Auto) 0.6 10^3/uL (0.2-0.9) 06/27/23 14:44 Eos # (Auto) 0.2 10^3/uL (0.0-0.8) 06/27/23 14:44 Baso # (Auto) 0.1 10^3/uL (0.0-0.1) 06/27/23 14:44 Nucleated RBC % (auto) 0 % 06/27/23 14:44 Nucleated RBCs # 0.0 /100WBC 06/27/23 14:44 PT 13.50 SECONDS (12.1-14.9) 06/27/23 14:44 INR 1.00 (0.8-1.2) 06/27/23 14:44 Sodium 140 mmol/L (136-145) 06/27/23 14:44 Potassium 3.4 mmol/L (3.5-5.1) L 06/27/23 14:44 Chloride 100 mmol/L (98-107) 06/27/23 14:44 Carbon Dioxide 29 mmol/L (22-29) 06/27/23 14:44 Anion Gap 14.4 (5-19) 06/27/23 14:44 BUN 15 mg/dL (8-23) 06/27/23 14:44 Creatinine 0.9 mg/dL (0.7-1.2) 06/27/23 14:44 GFR Calculation Not Reportable 06/27/23 14:44 Glucose 107 mg/dL (65-115) 06/27/23 14:44 Calculated Osmolality 291 mOsm/kg (285-295) 06/27/23 14:44 Calcium 9.9 mg/dL (8.5-10.5) 06/27/23 14:44 Total Bilirubin 0.6 mg/dL (0.15-1.2) 06/27/23 14:44 AST 26 U/L (0-40) 06/27/23 14:44 ALT 29 U/L (0-41) 06/27/23 14:44 Alkaline Phosphatase 69 U/L (40-130) 06/27/23 14:44 Total Protein 7.9 g/dL (6.6-8.7) 06/27/23 14:44 Albumin 4.3 g/dL (3.5-5.2) 06/27/23 14:44 Globulin 3.6 g/dL (1.3-4.6) 06/27/23 14:44 All radiology interpretation(s) finalized by discharge Discharge Plan Discharge Patient Disposition: Home Clinical Impression: BRBPR (bright red blood per rectum), Colitis Abdominal pain Qualifiers: Abdominal location: left lower quadrant Qualified Code(s): R10.32 - Left lower quadrant pain Condition: Stable Prescriptions: New metronidazole 500 mg tablet 500 mg PO Q8H 7 Days Qty: 21 0RF No Action Anoro Ellipta 62.5-25 mcg/actuation blister with device 1 inh inhalation DAILY Qty: 60 11RF albuterol sulfate 90 mcg/actuation HFA aerosol inhaler 2 inh inhalation Q6H PRN (Reason: shortness of breath or wheezing) Qty: 6.7 0RF nitroglycerin 0.4 mg tablet, sublingual 0.4 mg sublingual Q5M PRN (Reason: chest pain) Qty: 10 1RF Rx Instructions: do not exceed 3 doses per episode silica 1 cap PO DAILY Prosta Genix 1 cap PO QPM Tucks (witch mara) 50 % pads, medicated 1 pad topical 6XD PRN (Reason: skin cleansing) Qty: 100 0RF phenyleph-min oil-petrolatum 0.25-14-74.9 % ointment 1 applic [place] QID PRN (Reason: hemorrhoids) Qty: 57 0RF Rx Instructions: Apply Morning, night, and after bowel movement. betamethasone dipropionate 0.05 % cream See Rx Instructions .ROUTE .COMPLEX Qty: 45 11RF Dose Instruction: APPLY TWICE DAILY TO ELBOWS NEEDED Rx Instructions: APPLY TWICE DAILY TO ELBOWS NEEDED multivitamin Tablet 1 tab PO DAILY aspirin 81 mg Tablet,Delayed Release (Dr/Ec) 81 mg PO BEDTIME Hold Instructions: Resume on 08/24/20. Ibuprofen PM 200-38 mg Tablet 2 tab PO BEDTIME ketoconazole 2 % Shampoo 1 applic TOPICAL Q14D PRN (Reason: Itching) desonide 0.05 % Ointment 1 applic TOPICAL BID PRN (Reason: Itching) zinc gluconate 50 mg Tablet 50 mg PO DAILY Vitamin D3 25 mcg (1,000 unit) Tablet 25 mcg PO DAILY tamsulosin 0.4 mg capsule 0.4 mg PO BEDTIME hydrochlorothiazide 25 mg tablet 25 mg PO DAILY Discharge Orders: Discharge ED (Routine); Ordered 06/27/23 Ordered By: Darrel Syed Referrals: Uche Villafana MD [Primary Care Provider] - Discharge Diet: Usual diet Discharge Activity: Resume usual activity Patient Instructions: Abdominal Pain (ED), Opioid Safety, Pain Management Activity Restrictions/Additional Instructions: Activity Restrictions/Additional Instructions: Thank you for choosing [facility] for your healthcare needs today. Please realize that you were seen in the Emergency Department and that we are providing you with an emergency medical screening exam and this may not be a complete and all inclusive of all the testing and or medical work-up that you may need to determine your ailment or severity of your illness. It is very important that you follow-up as instructed with your Primary care provider or Specialist for additional evaluation and to discuss your medical treatment plan. Coding Level of Care Code ED Student Accounts Coordinator for Clementina Gloria
[2023-06-27 15:02] LABS: Basophils # 0.1 10^3/uL (0.0-0.1); Basophils % 0.8 %; Eosinophils # 0.2 10^3/uL (0.0-0.8); Eosinophils % 2.6 %; Lymphocytes # 1.5 10^3/uL (0.8-4.8); Lymphocytes % 22.9 %; Mean Corpuscular Hemoglobin 33.3 pg (27-33); Mean Corpuscular Volume 92.6 fl (82-101); Mean Platelet Volume 9.8 fL (7.4-10.4); Monocytes # 0.6 10^3/uL (0.2-0.9); Monocytes % 8.5 %; Neutrophils # 4.27 10^3/uL (1.8-7.7); Neutrophils % 64.7 %; Nucleated Red Blood Cells % 0 %; Platelet Count 230 10^3/cmm (157-399); Red Blood Count 4.86 10^6/uL (3.85-5.65); Red Cell Distribution Width 12.6 % (12.1-15.1); White Blood Count 6.59 10^3/uL (3.29-11.43)
[2023-06-27 15:20] LABS: Alanine Aminotransferase 29 U/L (0-41); Albumin Level 4.3 g/dL (3.5-5.2); Alkaline Phosphatase 69 U/L (40-130); Anion Gap 14.4 (5-19); Aspartate Amino Transferase 26 U/L (0-40); Blood Urea Nitrogen 15 mg/dL (8-23); Calcium 9.9 mg/dL (8.5-10.5); Carbon Dioxide 29 mmol/L (22-29); Chloride 100 mmol/L (98-107); Globulin 3.6 g/dL (1.3-4.6); Glucose 107 mg/dL (65-115); Osmolality Calculated 291 mOsm/kg (285-295); Potassium 3.4 mmol/L (3.5-5.1); Sodium 140 mmol/L (136-145); Total Bilirubin 0.6 mg/dL (0.15-1.2); Total Protein 7.9 g/dL (6.6-8.7)
[2023-06-27] MEDS: iohexol 350 mg/mL 500 mL Btl (per mL) IV (15:32)
[2023-06-27 16:54] VITALS: BP 147/89; PULSE 91; RESP 16; TEMP 36.7; O2SAT 95
== END 2023-06-27 16:57 | disposition home or self-care (01) ==
PROVIDERS: Emergency Provider Internal Medicine; PCP Family Medicine
DX: K52.9 Noninfective gastroenteritis and colitis, unspecified (principal); K62.5 Hemorrhage of anus and rectum; R10.32 Left lower quadrant pain; Z79.82 Long term (current) use of aspirin; Z87.891 Personal history of nicotine dependence; I10 Essential (primary) hypertension
CPT/HCPCS: 74177; 80053; 85025; 85610; 99285; Q9967

== ENCOUNTER → 2023-12-08 14:50 | Outpatient (BNVA) | payer MEDICARE, SELFPAY | PROVIDERS: PCP Family Medicine; Visit Provider Internal Medicine Cardiovascular Disease | DX: I10 Essential (primary) hypertension (principal); Z87.898 Personal history of other specified conditions | CPT/HCPCS: 99214 ==

== ENCOUNTER → 2023-12-10 09:23 | Outpatient (BNVA) | payer MEDICARE, SELFPAY | PROVIDERS: PCP Family Medicine; Visit Provider Family Medicine | DX: L40.9 Psoriasis, unspecified (principal); I10 Essential (primary) hypertension; N40.0 Benign prostatic hyperplasia without lower urinary tract symptoms; R53.83 Other fatigue; E11.9 Type 2 diabetes mellitus without complications | CPT/HCPCS: 80053; 82306; 82607; 83735; 83880; 84443; 85025; 86140 ==

== ENCOUNTER 2023-12-22 17:07 | Emergency (ER) | payer MEDICARE, SELFPAY ==
[2023-12-22] VITALS (22 sets, daily range): BP systolic 126–176; BP diastolic 86–121; PULSE 111–135; RESP 11–31; TEMP 36.4; O2SAT 91–95; BMI 28.5
--- NOTE | 2023-12-22 17:22 | ECG_ITS ---
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1950 Requested By: Harrison eMrino Order Number: [id number] Reading MD: KALEN DARNELL Measurements Intervals [place] Rate: 133 P: -61 SC: 137 QRS: 267 QRSD: 138 T: 78 QT: 299 QTc: 445 Interpretive Statements JUNCTIONAL TACHYCARDIA RIGHT AXIS DEVIATION [QRS AXIS > 100] RIGHT BUNDLE BRANCH BLOCK [120+ ms QRS DURATION, UPRIGHT V1, 40+ ms S IN I/aVL/V4/V5/V6] Compared to ECG 08/16/2020 00:22:30 Junctional tachycardia now present Sinus rhythm no longer present First degree AV block no longer present Myocardial infarct finding no longer present Electronically Signed On 12-23-2023 21:00:25 CDT by KALEN DARNELL [email or web address]
--- NOTE | 2023-12-22 17:37 | W.ED.EPISTAX ---
HPI - Epistaxis General: Chief complaint: Epistaxis Stated complaint: nose bleed Time Seen by Provider: 12/22/23 17:36 History of Present Illness: Patient presents to the ER with nosebleed. Patient called EMS when he could not get his left nos stopped bleeding. Patient is not on any anticoagulation other than a baby aspirin. Patient said he has been having upper respiratory infection and been coughing very hard. He coughed 1 time too hard this time is no start bleeding. Patient is never had a nosebleed like this before. Related Data Home Medications Medication Instructions Recorded Confirmed desonide 0.05 % topical ointment 1 applic topical BID PRN Itching 12/27/19 12/22/23 ketoconazole 2 % shampoo 1 applic topical Q14D PRN Itching 12/27/19 12/22/23 aspirin 81 mg tablet,delayed 81 mg PO BEDTIME 08/16/20 12/22/23 release ibuprofen-diphenhydramine citrate 2 tab PO BEDTIME 08/16/20 12/22/23 200 mg-38 mg tablet (Ibuprofen PM) multivitamin 1 tab PO DAILY 08/16/20 12/22/23 Prosta Genix 1 cap PO QPM 06/18/22 12/22/23 silica 1 cap PO DAILY 06/18/22 12/22/23 cholecalciferol (vitamin D3) 25 25 mcg PO DAILY 06/27/23 12/22/23 mcg (1,000 unit) tablet (Vitamin D3) zinc gluconate 50 mg tablet 50 mg PO DAILY 06/27/23 12/22/23 Previous Rx's Medication Instructions Recorded betamethasone dipropionate 0.05 % See Rx Instructions .Route 11/07/22 topical cream .COMPLEX #45 grams umeclidinium 62.5 mcg-vilanterol 1 inh inhalation DAILY #60 ea 11/21/22 25 mcg/actuation powdr for inhalation (Anoro Ellipta) albuterol sulfate 90 mcg/actuation 2 inh inhalation Q6H PRN shortness 04/11/23 aerosol inhaler of breath or wheezing #6.7 grams phenylephrine 0.25 %-mineral oil 1 applic MD QID PRN hemorrhoids 06/27/23 14 %-petrolatm 74.9 % rectal #57 grams ointment witch mara 50 % topical pads 1 pad topical 6XD PRN skin 06/27/23 (Guillermomarcelina (witmarcelle terry)) cleansing #100 ea nitroglycerin 0.4 mg sublingual 0.4 mg sublingual Q5M PRN chest 09/17/23 tablet pain #10 tabs hydrochlorothiazide 25 mg tablet See Rx Instructions .Route 10/29/23 .COMPLEX #90 tabs tamsulosin 0.4 mg capsule See Rx Instructions .Route 11/27/23 .COMPLEX #90 caps amlodipine 5 mg tablet 5 mg PO DAILY #90 tabs 12/08/23 prednisone 20 mg tablet 20 mg PO BID 5 days #10 tabs 12/15/23 ciprofloxacin HCl 500 mg tablet 500 mg PO BID #20 tabs 12/22/23 tadalafil 5 mg tablet (Cialis) 5 mg PO DAILY PRN sexual activity 12/22/23 #30 tabs Allergies Allergy/AdvReac Type Severity Reaction Status Date / Time No Known Allergies Allergy Verified 12/15/23 09:53 Review of Systems General: Reports: 10 or more systems reviewed and unremarkable except in HPI and below PFSH ED PFSH: Medical History Diverticulosis Dyspnea Abnormal stress test Paroxysmal A-fib BPH (benign prostatic hyperplasia) Rheumatoid arthritis Psoriasis Hypertension Surgical History No pertinent past surgical history Family History Father CAD (coronary artery disease) [place] age 82 Social History Smoking and tobacco/nicotine status: unknown if used tobacco/nicotine Quit status (tobacco/nicotine): has quit using Former quit date comment: 2012 Alcohol intake: never Substance/Drug Use: current Substance/Drug use frequency: Special occassions/opportunity only Lives independently: Yes Housing: House Marital status details: His a month ago Physical Exam Const: COMMON NORMALS: no acute distress, average body habitus, patient oriented x3, no limitations, healthy appearing, alert and well nourished HENMT: COMMON NORMALS: normocephalic, atraumatic, hearing grossly normal bilaterally, external ears normal, Normal nasal mucous membranes and turbinates present, moist oral mucous membranes and oropharynx normal; external nose not normal ( Bleeding out of the left nostril only.) HEAD & SCALP: normocephalic and atraumatic NOSE: Normal nasal mucous membranes and turbinates present; external nose not normal ( Bleeding out of the left nostril only.) EXTERNAL EAR: Yes external ears normal Neck/C-Spine: COMMON NORMALS: full ROM, no lymphadenopathy, supple, no meningeal signs, no JVD and Thyroid normal THYROID: Thyroid normal Chest: COMMONS NORMALS: normal inspection of the chest and normal palpation of entire chest wall Resp: COMMON NORMALS: normal respiratory effort, No retractions, No use of accessory muscles and clear to auscultation bilaterally AUSCULTATION: clear to auscultation bilaterally Cardio: COMMON NORMALS: no JVD, regular rhythm, S1 normal heart sound present, S2 normal heart sound present, No gallops present (Cardio), No murmurs present (Cardio) and No rub (Cardio); negative for regular rate ( Mildly tachycardic) RATE: abnormal rate ( Mildly tachycardic) RHYTHM: regular rhythm HEART SOUNDS: S1 normal heart sound present and S2 normal heart sound present GI: COMMON NORMALS: Normal to inspection, nondistended, normoactive bowel sounds present, Soft to palpation, non-tender, No hepatosplenomegaly present and no masses PALPATION: Yes Soft to palpation and Yes No hepatosplenomegaly present Neuro: COMMON NORMALS: patient oriented x3 SENSORIUM/ORIENTATION: Yes alert MENINGEAL SIGNS: Yes no meningeal signs Procedures Epistaxis Control Time Out Performed: Yes Nostril: bilateral Direct Inspection: yes and unable to visualize Clots Removed by: blowing nose and manually Device Inserted: hemostatic balloon Patient Tolerated Procedure: well Complications: continued epistaxis Course Vital Signs: Vital signs: Vital Signs Temperature 97.5 F L 12/22/23 17:09 Pulse Rate 129 H 12/22/23 20:21 Respiratory Rate 22 H 12/22/23 20:21 Blood Pressure 161/121 12/22/23 20:21 Pulse Oximetry 95 12/22/23 20:21 Oxygen Delivery Me thod Room Air 12/22/23 18:01 MDM - Epistaxis Medical Decision Making Patient is nose was clamped with pressure, Afrin instilled, Rhino Rocket AP on both sides lubricated with Afrin, none of these provided enough hemostasis. We do not have ENT on-call, we did call Dr. Reina HOLLIS at [facility], he wanted us to go to the ER to see if they could you anything and if they could and they would call him. Dr. Caal in the [facility] ER accepted. Medical Records I reviewed the patient's medical records. Lab Data I reviewed the patient's lab results. 12/22/23 16:49 12/22/23 16:49 Laboratory Results WBC 10.86 10^3/uL (3.29-11.43) 12/22/23 16:49 RBC 4.63 10^6/uL (3.85-5.65) 12/22/23 16:49 Hgb 15.80 g/dL (11.27-16.99) 12/22/23 16:49 Hct 44.3 % (37-53) 12/22/23 16:49 MCV 95.7 fl (82-101) 12/22/23 16:49 MCH 34.1 pg (27-33) H 12/22/23 16:49 MCHC 35.7 g/dL (30-55) 12/22/23 16:49 RDW 13.1 % (12.1-15.1) 12/22/23 16:49 Plt Count 275 10^3/cmm (157-399) 12/22/23 16:49 MPV 9.8 fL (7.4-10.4) 12/22/23 16:49 Neut % (Auto) 83.7 % 12/22/23 16:49 Lymph % (Auto) 10.5 % 12/22/23 16:49 [place] % (Auto) 4.1 % 12/22/23 16:49 Eos % (Auto) 0.0 % 12/22/23 16:49 Baso % (Auto) 0.2 % 12/22/23 16:49 Neut # (Auto) 9.10 10^3/uL (1.8-7.7) H 12/22/23 16:49 Lymph # (Auto) 1.1 10^3/uL (0.8-4.8) 12/22/23 16:49 [place] # (Auto) 0.4 10^3/uL (0.2-0.9) 12/22/23 16:49 Eos # (Auto) 0.0 10^3/uL (0.0-0.8) 12/22/23 16:49 Baso # (Auto) 0.0 10^3/uL (0.0-0.1) 12/22/23 16:49 Nucleated RBC % (auto) 0 % 12/22/23 16:49 Nucleated RBCs # 0.0 /100WBC 12/22/23 16:49 PT 12.30 SECONDS (12.1-14.9) 12/22/23 16:49 INR 0.89 (0.8-1.2) 12/22/23 16:49 Sodium 143 mmol/L (136-145) 12/22/23 16:49 Potassium 4.3 mmol/L (3.5-5.1) 12/22/23 16:49 Chloride 105 mmol/L (98-107) 12/22/23 16:49 Carbon Dioxide 26 mmol/L (22-29) 12/22/23 16:49 Anion Gap 16.3 (5-19) 12/22/23 16:49 BUN 24 mg/dL (8-23) H 12/22/23 16:49 Creatinine 1.0 mg/dL (0.7-1.2) 12/22/23 16:49 GFR Calculation Not Reportable 12/22/23 16:49 Glucose 151 mg/dL (65-115) H 12/22/23 16:49 Calculated Osmolality 303 mOsm/kg (285-295) H 12/22/23 16:49 Calcium 9.0 mg/dL (8.5-10.5) 12/22/23 16:49 Total Bilirubin 0.4 mg/dL (0.15-1.2) 12/22/23 16:49 AST 20 U/L (0-40) 12/22/23 16:49 ALT 28 U/L (0-41) 12/22/23 16:49 Alkaline Phosphatase 77 U/L (40-130) 12/22/23 16:49 Total Protein 7.7 g/dL (6.6-8.7) 12/22/23 16:49 Albumin 4.5 g/dL (3.5-5.2) 12/22/23 16:49 Globulin 3.2 g/dL (1.3-4.6) 12/22/23 16:49 No radiology studies performed this visit Discharge Plan Discharge Patient Disposition: Xfer Short-Term Hosp Clinical Impression: Epistaxis Condition: Stable Prescriptions: No Action Anoro Ellipta 62.5-25 mcg/actuation blister with device 1 inh inhalation DAILY Qty: 60 11RF albuterol sulfate 90 mcg/actuation HFA aerosol inhaler 2 inh inhalation Q6H PRN (Reason: shortness of breath or wheezing) Qty: 6.7 0RF nitroglycerin 0.4 mg tablet, sublingual 0.4 mg sublingual Q5M PRN (Reason: chest pain) Qty: 10 1RF Rx Instructions: do not exceed 3 doses per episode ciprofloxacin HCl 500 mg tablet 500 mg PO BID Qty: 20 0RF tadalafil [Cialis] 5 mg tablet 5 mg PO DAILY PRN (Reason: sexual activity) Qty: 30 2RF Rx Instructions: administer approximately 30min before sexual activity; silica 1 cap PO DAILY Prosta Genix 1 cap PO QPM Tucks (witmarcelle mara) 50 % pads, medicated 1 pad topical 6XD PRN (Reason: skin cleansing) Qty: 100 0RF phenyleph-min oil-petrolatum 0.25-14-74.9 % ointment 1 applic MD QID PRN (Reason: hemorrhoids) Qty: 57 0RF Rx Instructions: Apply Morning, night, and after bowel movement. amlodipine 5 mg tablet 5 mg PO DAILY Qty: 90 0RF prednisone 20 mg tablet 20 mg PO BID 5 Days Qty: 10 0RF betamethasone dipropionate 0.05 % cream See Rx Instructions .ROUTE .COMPLEX Qty: 45 11RF Dose Instruction: APPLY TWICE DAILY TO ELBOWS NEEDED Rx Instructions: APPLY TWICE DAILY TO ELBOWS NEEDED hydrochlorothiazide 25 mg tablet See Rx Instructions .ROUTE .COMPLEX Qty: 90 3RF Dose Instruction: Take 1 tablet by mouth once daily Rx Instructions: Take 1 tablet by mouth once daily tamsulosin 0.4 mg capsule See Rx Instructions .ROUTE .COMPLEX Qty: 90 3RF Dose Instruction: TAKE 1 CAPSULE BY MOUTH AT BEDTIME ONCE DAILY Rx Instructions: TAKE 1 CAPSULE BY MOUTH AT BEDTIME ONCE DAILY multivitamin Tablet 1 tab PO DAILY aspirin 81 mg Tablet,Delayed Release (Dr/Ec) 81 mg PO BEDTIME Hold Instructions: Resume on 06/24/21. Ibuprofen PM 200-38 mg Tablet 2 tab PO BEDTIME ketoconazole 2 % Shampoo 1 applic TOPICAL Q14D PRN (Reason: Itching) desonide 0.05 % Ointment 1 applic TOPICAL BID PRN (Reason: Itching) zinc gluconate 50 mg Tablet 50 mg PO DAILY Vitamin D3 25 mcg (1,000 unit) Tablet 25 mcg PO DAILY Referrals: Uche Villafana MD [Primary Care Provider] - Coding Level of Care Code ED Business Development Sales Executive for Clementina Gloria
[2023-12-22] MEDS: sodium chloride 0.9% 1,000 ML 999 ML IV (17:57)
[2023-12-22] MEDS: tranexamic acid 1,000 MG/100 ML PREMIX 600 MG IV (17:58)
[2023-12-22 17:59] LABS: Basophils % 0.2 %; Hematocrit 44.3 % (37-53); Lymphocytes # 1.1 10^3/uL (0.8-4.8); Lymphocytes % 10.5 %; Mean Corpuscular HGB Conc 35.7 g/dL (30-55); Mean Corpuscular Hemoglobin 34.1 pg (27-33); Mean Corpuscular Volume 95.7 fl (82-101); Mean Platelet Volume 9.8 fL (7.4-10.4); Monocytes # 0.4 10^3/uL (0.2-0.9); Monocytes % 4.1 %; Neutrophils % 83.7 %; Nucleated Red Blood Cells % 0 %; Platelet Count 275 10^3/cmm (157-399); Red Blood Count 4.63 10^6/uL (3.85-5.65); Red Cell Distribution Width 13.1 % (12.1-15.1); White Blood Count 10.86 10^3/uL (3.29-11.43)
[2023-12-22 18:06] LABS: INR 0.89 (0.8-1.2)
[2023-12-22 18:19] LABS: Alanine Aminotransferase 28 U/L (0-41); Albumin Level 4.5 g/dL (3.5-5.2); Alkaline Phosphatase 77 U/L (40-130); Anion Gap 16.3 (5-19); Aspartate Amino Transferase 20 U/L (0-40); Blood Urea Nitrogen 24 mg/dL (8-23); Carbon Dioxide 26 mmol/L (22-29); Chloride 105 mmol/L (98-107); Creatinine Clr Calc Pharmacy 66.4836; Globulin 3.2 g/dL (1.3-4.6); Glucose 151 mg/dL (65-115); Osmolality Calculated 303 mOsm/kg (285-295); Potassium 4.3 mmol/L (3.5-5.1); Sodium 143 mmol/L (136-145); Total Bilirubin 0.4 mg/dL (0.15-1.2); Total Protein 7.7 g/dL (6.6-8.7)
[2023-12-22] MEDS: oxymetazoline 0.05% Nasal Spray 15 mL 4 SPRAY NOSTRIL-R (18:31)
--- NOTE | 2023-12-22 18:35 | PC.NURSE ---
PT UNABLE TO TOLERATE VITAL SIGNS AT THIS TIME.
[2023-12-22] MEDS: ondansetron 2 mg/ML SDV 2 mL 8 MG IVP (20:35)
[2023-12-22] MEDS: morphine 4 mg/mL SDV 1 mL IVP (20:38)
== END 2023-12-22 22:00 | disposition short-term general hospital (02) ==
PROVIDERS: Emergency Provider Emergency Medicine; PCP Family Medicine
DX: R04.0 Epistaxis (principal); I48.91 Unspecified atrial fibrillation; I10 Essential (primary) hypertension; Z79.82 Long term (current) use of aspirin
CPT/HCPCS: 30901; 30905; 80053; 85025; 85610; 93005; 96361; 96365; 96375; 99285; J2270; J2405; J7030

== ENCOUNTER 2024-03-08 15:18 | Outpatient (CLI) | payer MEDICARE, SELFPAY ==
--- NOTE | 2024-03-08 15:30 | USCV_ITS ---
IsraelWilbur Age: 73 Gender: M : 1950 Exam Date: 03/08/2024 15:28 Ordering Phys: Uche Villafana MD Technologist: JAVIER Exam Location: [facility] [place] Indication: TIA Risk Factors: Previous Vascular Surgery: Right Brachial BP: / Left Brachial BP: / Right Left Velocity (cm/s) Spectral Plaque Velocity (cm/s) Spectral Plaque Syst/Diast Broadening Syst/Diast Broadening 98.30/ 25.80 Prox CCA 90.10 / 20.80 80.20/ 19.30 Mid CCA 93.60 / 21.50 63.40/ 20.60 Distal CCA 64.70 / 21.50 42.60/ 14.80 Prox ICA 54.70 / 16.50 49.60/ 16.80 Mid ICA 56.00 / 19.60 38.70/ 14.80 Distal ICA 51.00 / 16.30 74.90 ECA 75.10 0.70 ICA/CCA 0.80 Antegrade Vertebral Antegrade 40.80/ 16.50 cm/s 53.60/ 12.00 cm/s Tri Subclavian Tri 64.10 116.7 0 CONCLUSIONS Right ICA stenosis <50%. Moderate to severe atheromatous plaque right carotid bulb/ICA. Left ICA stenosis <50%. Moderate to severe atheromatous plaque left carotid bulb/ICA. Bulky scattered calcified plaque and intimal thickening in both CCA's Calcified plaque could obscure more significant stenosis. Consider CTA neck in further evaluation. Normal antegrade Doppler flow noted in the right vertebral artery. Normal antegrade Doppler flow noted in the left vertebral artery. Diego Mary MD (Electronically Signed) Final Date: 09 March 2024 08:47 S
== END 2024-03-08 15:19 | disposition home or self-care (01) ==
LOC: RAD 15:21
PROVIDERS: PCP Family Medicine; Visit Provider Family Medicine
DX: G45.9 Transient cerebral ischemic attack, unspecified (principal); R93.89 Abnormal findings on diagnostic imaging of other specified body structures
CPT/HCPCS: 93880

== ENCOUNTER 2024-03-18 07:37 | Outpatient (CLI) | payer MEDICARE, SELFPAY ==
--- NOTE | 2024-03-18 08:00 | CT_ITS ---
WS: [id number] CT ANGIOGRAM CAROTID ARTERIES HISTORY: carotid artery disease on US TECHNIQUE: CT angiogram is performed of the carotid arteries. During arterial injection imaging is ob tained from the skull base to the aortic arch in 1.25 mm imaging. Coronal and sagittal reformats are submitted, MIP imaging also reviewed. Additional multiplanar reformats of the carotid arteries are weldon bmitted. NASCET criteria utilized. All CT scans at [facility] use at least one of these dose optimization techniques: automated exposure control; mA and/or kV adjustment per patient size (includ es targeted exams where dose is matched to clinical indication); or iterative reconstruction. CONTRAST: Omnipaque 350; 100 mL IV. DLP: 229.34 mGy.cm COMPARISON: Ultrasound 03/08/2024 Right carotid: Common carotid artery: Scattered plaque in the common carotid artery with more moderate plaque at the bifurcation. No significant stenosis. Internal carotid artery: Moderate plaque burden at the bifurcation but no stenosis. External carotid artery: Patent. Left carotid: Common carotid artery: Origin of the common carotid artery from the arch is not included. The remaini ng common carotid artery is normal caliber. Internal carotid artery: Near circumferential calcified plaque and intimal thickening at the bifurcat ion. Mild narrowing at the proximal LEFT ICA but no high-grade stenosis. External carotid artery: Patent. Right vertebral artery: Dominant. No stenosis. Left vertebral artery: Arises from the arch but the origin is not included. Small caliber but patent. Subclavian arteries: Origin of the LEFT subclavian artery is not included. Remaining LEFT subclavian artery is normal. RIGHT subclavian artery is normal. Upper thorax: Centrilobular emphysema. Thyroid gland: Normal. Osseous structures: Reversal of the normal cervical lordosis centered at C4. Cervical spine disc spac es are all narrowed and desiccated. Skull base: Small amount of calcified plaque in the cavernous carotid arteries with no stenosis. Ther e is additional plaque through the petrous carotid arteries also. CT/CT angio neck [id number] IMPRESSION: 1. Moderate calcified plaque at the cervical carotid artery bifurcations. Sten osis less than 50%. Findings correspond to the ultrasound of 03/08/2024. 2. Additional scattered plaque in the petrous and cavernous carotid arteries b ut no high-grade stenosis.
[2024-03-18 08:37] LABS: Blood Urea Nitrogen 11 mg/dL (8-23)
[2024-03-18] MEDS: iohexol 350 mg/mL 500 mL Btl (per mL) IV (08:43)
== END 2024-03-18 07:38 | disposition home or self-care (01) ==
LOC: RAD 07:38
PROVIDERS: PCP Family Medicine; Visit Provider Family Medicine
DX: I77.9 Disorder of arteries and arterioles, unspecified (principal); I65.23 Occlusion and stenosis of bilateral carotid arteries; J43.2 Centrilobular emphysema; M48.02 Spinal stenosis, cervical region; R93.89 Abnormal findings on diagnostic imaging of other specified body structures
CPT/HCPCS: 70498; 82565; 84520

== ENCOUNTER 2024-03-29 09:57 | Outpatient (CLI) | payer MEDICARE, SELFPAY ==
--- NOTE | 2024-03-29 10:15 | MR_ITS ---
WS: [id number] MRI BRAIN WITHOUT CONTRAST HISTORY: r/u CVA COMPARISON: None available. TECHNIQUE: Diffusion imaging, multiplanar T1, T2 and FLAIR imaging obtained. No evidence for acute infarct or hemorrhage. Allen-white matter differentiation is normal. Mild bilate ral hippocampal atrophy. Mild small vessel disease with no prior infarct. No remote or acute infarcts are volume loss. Ventricles and extra-axial spaces are normal. No inferior displacement of cerebellar tonsils. The sella turcica and pituitary gland are unremarkabl e. Dural venous sinuses and [place] of [place] demonstrate no abnormality on this unenhanced studies. Paranasal sinuses: Mild mucoperiosteal thickening LEFT maxillary sinus. No air-fluid levels within th e sinuses. Mastoid air cells: Normal. Calvarium and scalp: Intact. Small central disc protrusion at C3-4. MR/MR head wo con* [id number] IMPRESSION: 1. No acute infarct or hemorrhage. 2. Mild cerebral volume loss and mild small vessel disease. 3. Mild hippocampal atrophy.
== END 2024-03-29 09:58 | disposition home or self-care (01) ==
LOC: RAD 09:58
PROVIDERS: PCP Family Medicine; Visit Provider Family Medicine
DX: R42 Dizziness and giddiness (principal); R55 Syncope and collapse; R93.0 Abnormal findings on diagnostic imaging of skull and head, not elsewhere classified; G31.89 Other specified degenerative diseases of nervous system; M50.21 Other cervical disc displacement, high cervical region
CPT/HCPCS: 70551

== ENCOUNTER 2024-05-13 07:13 | Outpatient (CLI) | payer MEDICARE, SELFPAY ==
--- NOTE | 2024-05-13 | ECG_ITS ---
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 Interpretive Statements LEXISCAN: Procedure: At the baseline, the blood pressure was 148/90 mmHg with a heart rate of 63 bpm. The electrocardiogram showed normal sinus rhythm, right bundle branch block with normal ST and T's. The Lexiscan was infused over a period of 20 seconds. A total of 0.4 mg of Lexiscan was infused. The stress phase was continued for a total of 5 minutes. Heart rate was at the end of stress phase was 77 bpm and a blood pressure of 152/101 mmHg. The EKG at the peak infusion revealed normal sinus rhythm with no significant ST-T wave changes. Sestamibi was injected 20 seconds after the Lexiscan infusion. Blood pressure at the end of recovery phase was 153/97 mmHg with a heart rate of 72 bpm. Conclusion: 1. Normal EKG response to Lexiscan infusion 2. No Lexiscan induced chest pain or cardiac arrhythmia. 3. Normal blood pressure and heart rate response. 4. Sestamibi/sestamibi perfusion scan pending; see separate report. Electronically Signed On 05-23-2024 01:39:51 CDT by Boris Nguyen M.D. [email or web address]
[2024-05-13 08:02] VITALS: BMI 28.5
--- NOTE | 2024-05-13 08:04 | NMCV_ITS ---
NM frankie perf SPECT r/s* [id number] Wilbur Wood Age: 73 Gender: M : 1950 Exam Date: 05/13/2024 08:04 Ordering Phys: Uche Villafana MD Technologist: ASHA Harris Exam Location: [facility] Indications: cp STRESS TEST Please see separate stress test report in [facility] for full findings IMAGE PROTOCOL Rest/Stress 1 Lexiscan Day Radiopharmaceutical Dose (mCi) Administration Site Administered by Rest: Tc-99m 10.8 IV ASHA Harris Sestamibi Stress:Tc-99m 32.5 IV ASHA Fischer Sestamibi Rest: 13-May-2024 60 Discovery 630 Stress: 13-May-2024 30 Discovery 630 0.4mg Lexiscan. Images obtained in supine and prone position. SPECT RESULTS Technical Quality: Good Raw Data Analysis: Normal Image Corrections: No attenuation or motion correction applied Summed Stress Score: 22 Summed Rest Score: 17 Summed Difference Score: 5 PERFUSION FINDINGS Large areas of partially reversible perfusion defect seen in apical, inferior septal, apical inferior, inferior and inferolateral barger. This is consistent with large area of prior infarct with significant teresa-infarct ischemia in RCA and left circumflex artery territories. FUNCTIONAL RESULTS (calculated via Gated SPECT) Stress Image LV EF (%): 51 Stress EDV (mL):114 TID: 1.08 Stress ESV (mL):56 FUNCTIONAL FINDINGS: There is normal left ventricular systolic function. IMPRESSIONS 1. 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 2. LV systolic function is normal Boris Nguyen MD (Electronically Signed) Final Date: 14 May 2024 09:38 S
[2024-05-13] MEDS: regadenoson 0.4 Mg/5 ml Syringe IVP (08:57)
[2024-05-13 09:09] VITALS: BP 153/97; PULSE 74
== END 2024-05-13 07:14 | disposition home or self-care (01) ==
LOC: CDL 07:15
PROVIDERS: PCP Family Medicine; Visit Provider Family Medicine
DX: R07.9 Chest pain, unspecified (principal)
CPT/HCPCS: 36415; 78452; 93017; 96374; A9500; J2785

== ENCOUNTER → 2024-07-15 14:53 | Outpatient (BNVA) | payer MEDICARE, SELFPAY | PROVIDERS: PCP Family Medicine; Visit Provider Family Medicine | DX: I25.10 Atherosclerotic heart disease of native coronary artery without angina pectoris (principal) | CPT/HCPCS: 80053; 85025 ==

== ENCOUNTER 2024-07-20 10:10 | Outpatient (CLI) | payer MEDICARE, SELFPAY ==
--- NOTE | 2024-07-20 10:12 | XRR_ITS ---
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 Views: 2 views. COMPARISON: CR XR chest 2V* [id number] 04/23/2023 1:24 PM FINDINGS: Lungs: There is minimal linear atelectasis at the left lung base. No consolidated infiltrates are appreciated. Pleural spaces: Unremarkable. No pleural effusion. No pneumothorax. Heart/Mediastinum: Heart size is normal. There is calcified plaque involving the aorta. Sternal wires are present from prior cardiac surgery. Bones/joints: Unremarkable. XR/XR chest 2V* [id number] IMPRESSION: 1. Minimal linear atelectasis left lung base.
== END 2024-07-20 10:11 | disposition home or self-care (01) ==
LOC: RAD 10:11
PROVIDERS: PCP Family Medicine; Visit Provider Family Medicine
DX: R05.9 Cough, unspecified (principal); I70.0 Atherosclerosis of aorta; Z98.890 Other specified postprocedural states
CPT/HCPCS: 71046